=== PATIENT | female | born 1935 | race Caucasian/White ===

== ENCOUNTER 2019-06-13 11:21 | Emergency (ER) | payer MEDICARE ==
[2019-06-13] MEDS ORDERED: NA CHLORIDE 0.9% 1,000 ML ONE (13:08)
--- NOTE | 2019-06-13 13:23 | RAD REPORT ---
EXAM DESCRIPTION: RAD - Chest Single View - 06/13/2019 1:17 pm CLINICAL HISTORY: COUGH Chest pain. COMPARISON: Chest Pa And Lat (2 Views) dated 09/10/2017; Chest Single View dated 09/03/2017; Abdomen 1 View (KUB) dated 08/13/2017; Chest Pa And Lat (2 Views) dated 04/06/2017; Abdomen Pelvis W Contrast dated 09/03/2017 FINDINGS: Portable technique limits examination quality. Calcified nodule is seen in the right lung base. The lungs are mildly emphysematous but clear. The he art is moderately enlarged in size with a dual lead pacer device present. No displaced fractures. IMPRESSION: No acute intrathoracic process suspected.
[2019-06-13 13:38] LABS: Absolute Lymphocytes (CBC) 2.2 K/uL (0.7-4.9); Lymphocytes % 28.8 % (15.3-44.8)
[2019-06-13 13:46] LABS: Basophils % 0.6 % (0-1.3); Hematocrit 39.1 % (36.0-45.0); MPV 9.9 fL (7.6-11.3)
[2019-06-13 13:47] LABS: Protime INR 1.31
[2019-06-13 14:00] LABS: ALT/SGPT 25 U/L (12-78); AST/SGOT 27 U/L (15-37); Alkaline Phosphatase 84 U/L (45-117); BUN Blood Urea Nitrogen 45 mg/dL (7-18); Bicarbonate 34 mmol/L (21-32); Bilirubin Direct 0.2 mg/dL (0-0.2); Bilirubin Total 0.9 mg/dL (0.2-1.0); Glucose Level 90 mg/dL (74-106); Lipase 155 U/L (73-393); Magnesium 2.1 mg/dL (1.8-2.4); NT PRO-BNP 1117 pg/mL (<450); Protein, Total 8.3 g/dL (6.4-8.2); Sodium Level 137 mmol/L (136-145); Troponin (Emerg Dept Use Only) < 0.02 ng/mL (0.0-0.045)
[2019-06-13 14:26] LABS: Urine Blood NEGATIVE (NEG); Urine Glucose NEGATIVE (NEG); Urine Protein NEGATIVE (NEG); Urine Specific Gravity 1.015 (1.005-1.030); Urine pH 7.5 (5.0-7.0)
--- NOTE | 2019-06-13 14:50 | RAD REPORT ---
EXAM DESCRIPTION: CT - Abdomen Pelvis Wo Contrast - 06/13/2019 2:31 pm CLINICAL HISTORY: Abdominal pain. ABD PAIN COMPARISON: Abdomen Pelvis W Contrast dated 09/03/2017 TECHNIQUE: CT imaging of the abdomen and pelvis was performed without contrast. Solid organ and vasc ular assessment is limited due to lack of IV contrast. All CT scans are performed using dose optimization technique as appropriate and may include automated exposure control or mA/KV adjustment according to patient size. FINDINGS: Calcified granuloma seen in the right lower lobe.Small hiatal hernia. Pacemaker wires are present. The liver has a subtle nodular contour of the right lobe suggesting mild cirrhosis.Cholecystectomy. T he spleen, pancreas, adrenal glands and kidneys are within normal limits. Aortic atherosclerosis. No bowel obstruction, free air, free fluid or abscess. Appendectomy. Degenerative changes are present in the lower lumbar spine. IMPRESSION: No acute intra-abdominal or pelvic findings. A limited non-contrast examination was performed as detailed.
--- NOTE | 2019-06-13 15:42 | EKG ---
Test Date: 2019-06-13 Test Time: 13:05:48 [place]ellows Tester: JIMENEZ MEASUREMENT RESULTS: Intervals: Rate: 74 CT: QRSD: 152 QT: 460 QTc: 510 Wells: P: 35 CT: QRS: 6 T: 85 INTERPRETIVE STATEMENTS: Ventricular-paced rhythm Abnormal ECG Compared to ECG 09/03/2017 06:32:36 no significant change from previous ECG Electronically Signed On 06-13-19 15:41:34 CDT by Avtar Manzanares
[2019-06-13] MEDS ORDERED: POTASSIUM 25 MEQ EFFERV TAB ONE (16:00)
--- NOTE | 2019-06-13 16:20 | EDPHYS ---
Physician Documentation [facility] Name: Sonia Camp Age: 83 yrs Sex: Female : 1935 Arrival Date: 06/13/2019 Time: 11:23 Bed 18 Private MD: Pérez Hoff ED Physician Gaurang Rader HPI: 06/13 13:00 This 83 yrs old Female presents to ER via Ambulatory with complaints of [place] Rectal Pain. 13:00 The patient presents to the emergency department with pain in the rectal area, that is [place] mild. Onset: The symptoms/episode began/occurred 3 day(s) ago. Context: the patient has no known special context relating to the rectal area complaint(s). Modifying factors: The symptoms are alleviated by nothing, The symptoms are aggravated by nothing. Associate signs and symptoms: The patient has no apparent associated signs or symptoms. The patient has not experienced similar symptoms in the past. Historical: - Allergies: 11:29 PENICILLINS (Hives, rash); tw2 - Home Meds: 11:29 Caltrate 600 + D Oral [Active]; furosemide 40 mg/4 mL Oral soln [Active]; Xarelto 10 mg tw2 Oral tab [Active]; Vitamin D Oral 1000 unit [Active]; Protonix 40 mg Oral grps [Active]; pravastatin 20 mg Oral tab [Active]; metoprolol tartrate 50 mg Oral tab [Active]; levothyroxine 100 mcg tab [Active]; hydrochlorothiazide 25 mg Oral tab 1 tab once daily [Active]; allopurinol 300 mg Oral tab 1 tab once daily [Active]; - PMHx: 11:29 Atrial Fib; Hypertension; Pacemaker; Gout; tw2 - PSHx: 11:29 Tonsillectomy; Appendectomy; Tubal ligation; Cholecystectomy; ; tw2 - Immunization history:: Adult Immunizations. - Social history:: Smoking status: . - Ebola Screening: : Patient denies travel to an Ebola-affected area in the 21 days before illness onset. ROS: 13:01 Constitutional: Negative for fever, chills, and weight loss, Eyes: Negative for injury, [place] pain, redness, and discharge, ENT: Negative for injury, pain, and discharge, Neck: Negative for injury, pain, and swelling, Cardiovascular: Negative for chest pain, palpitations, and edema, Respiratory: Negative for shortness of breath, cough, wheezing, and pleuritic chest pain, Abdomen/GI: Negative for abdominal pain, nausea, vomiting, diarrhea, and constipation, Back: Negative for injury and pain, : Negative for injury, bleeding, discharge, and swelling, MS/Extremity: Negative for injury and deformity, Neuro: Negative for headache, weakness, numbness, tingling, and seizure, Psych: Negative for depression, anxiety, suicide ideation, homicidal ideation, and hallucinations, Allergy/Immunology: Negative for hives, rash, and allergies, Endocrine: Negative for neck swelling, polydipsia, polyuria, polyphagia, and marked weight changes, Hematologic/Lymphatic: Negative for swollen nodes, abnormal bleeding, and unusual bruising. 13:01 Skin: Positive for of the left gluteus loco. Exam: 13:01 Constitutional: This is a well developed, well nourished patient who is awake, alert, [place] and in no acute distress. Head/Face: Normocephalic, atraumatic. Eyes: Pupils equal round and reactive to light, extra-ocular motions intact. Lids and lashes normal. Conjunctiva and sclera are non-icteric and not injected. Cornea within normal limits. Periorbital areas with no swelling, redness, or edema. ENT: Nares patent. No nasal discharge, no septal abnormalities noted. Tympanic membranes are normal and external auditory canals are clear. Oropharynx with no redness, swelling, or masses, exudates, or evidence of obstruction, uvula midline. Mucous membranes moist. Neck: Trachea midline, no thyromegaly or masses palpated, and no cervical lymphadenopathy. Supple, full range of motion without nuchal rigidity, or vertebral point tenderness. No Meningismus. Chest/axilla: Normal chest wall appearance and motion. Nontender with no deformity. No lesions are appreciated. Cardiovascular: Regular rate and rhythm with a normal S1 and S2. No gallops, murmurs, or rubs. Normal PMI, no JVD. No pulse deficits. Respiratory: Lungs have equal breath sounds bilaterally, clear to auscultation and percussion. No rales, rhonchi or wheezes noted. No increased work of breathing, no retractions or nasal flaring. Abdomen/GI: Soft, non-tender, with normal bowel sounds. No distension or tympany. No guarding or rebound. No evidence of tenderness throughout. Back: No spinal tenderness. No costovertebral tenderness. Full range of motion. Female : Normal external genitalia. Skin: Warm, dry with normal turgor. Normal color with no rashes, no lesions, and no evidence of cellulitis. MS/ Extremity: Pulses equal, no cyanosis. Neurovascular intact. Full, normal range of motion. Neuro: Awake and alert, GCS 15, oriented to person, place, time, and situation. Cranial nerves II-XII grossly intact. Motor strength 5/5 in all extremities. Sensory grossly intact. Cerebellar exam normal. Normal gait. Psych: Awake, alert, with orientation to person, place and time. Behavior, mood, and affect are within normal limits. 13:01 Abdomen/GI: Rectal exam: rectal tone normal, Stool: normal, hemorrhoid(s), are not appreciated, mass, is not appreciated, swelling, is not appreciated, Liver: no appreciated palpable abnormalities, Hernia: not appreciated. Vital Signs: 11:29 BP 158 / 72; Pulse 87; Resp 16; Temp 98.4(TE); Pulse Ox 95% on R/A; Weight 68.04 kg tw2 (R); Height 5 ft. 6 in. (167.64 cm); Pain 0/10; 13:03 BP 148 / 71; Pulse 70; Resp 16 S; Pulse Ox 94% on R/A; ca1 14:03 BP 123 / 57; Pulse 70; Resp 16 S; Pulse Ox 100% on R/A; ca1 15:02 BP 142 / 62; Pulse 81; Resp 16 S; Pulse Ox 96% on R/A; ca1 16:15 BP 154 / 63; Pulse 84; Resp 16 S; Pulse Ox 96% on R/A; ca1 11:29 Body Mass Index 24.21 (68.04 kg, 167.64 cm) tw2 MDM: 11:56 Patient medically screened. [facility] 13:02 Data reviewed: vital signs, nurses notes, lab test result(s), EKG, radiologic studies, [facility] CT scan, plain films. 06/13 12:59 Order name: Occult Blood--Ancillary bd 06/13 13:00 Order name: Basic Metabolic Panel; Complete Time: 14:19 [facility] 06/13 13:00 Order name: CBC with Diff; Complete Time: 14:19 [facility] 06/13 13:00 Order name: LFT's; Complete Time: 14:19 [facility] 06/13 13:00 Order name: Magnesium; Complete Time: 14:19 [facility] 06/13 13:00 Order name: NT PRO-BNP; Complete Time: 14:19 [facility] 06/13 13:00 Order name: PT-INR; Complete Time: 14:19 [facility] 06/13 13:00 Order name: Troponin (emerg Dept Use Only); Complete Time: 14:19 [facility] 06/13 13:00 Order name: XRAY Chest (1 view); Complete Time: 14:19 [facility] 06/13 13:00 Order name: Lipase; Complete Time: 14:19 [facility] 06/13 13:00 Order name: Urine Culture [facility] 06/13 13:33 Order name: Urine Dipstick--Ancillary (enter results); Complete Time: 15:50 06/13 13:00 Order name: EKG; Complete Time: 13:01 [facility] 06/13 13:00 Order name: Cardiac monitoring; Complete Time: 13:28 [facility] 06/13 13:00 Order name: EKG - Nurse/Tech; Complete Time: 13:04 [facility] 06/13 13:00 Order name: IV Saline Lock; Complete Time: 13:28 [facility] 06/13 13:00 Order name: Labs collected and sent; Complete Time: 13:28 [facility] 06/13 13:00 Order name: O2 Per Protocol; Complete Time: 13:04 [facility] 06/13 13:00 Order name: O2 Sat Monitoring; Complete Time: 13:04 [facility] 06/13 13:00 Order name: Urine Dipstick-Ancillary (obtain specimen); Complete Time: 13:27 [facility] 06/13 14:29 Order name: Abdomen ; Complete Time: 15:50 EDMS 06/13 15:51 Order name: PO challenge: juice; Complete Time: 16:15 [place] Administered Medications: 13:05 Drug: NS 0.9% 1000 ml Route: IV; Rate: 125 ml/hr; Site: right antecubital; ca1 16:29 Follow up: Response: No adverse reaction; IV Status: Order to discontinue infusion ca1 16:15 Drug: Potassium Effervescent Tablet 25 mEq Route: PO; ca1 16:29 Follow up: Response: No adverse reaction ca1 Disposition: 06/13/19 16:19 Discharged to Home. Impression: Abdominal tenderness, Unspecified kidney failure, Hypokalemia. - Condition is Stable. - Discharge Instructions: Abdominal Pain, Adult, Potassium Content of Foods, Abdominal Pain, Adult, [id number], Chronic Kidney Disease, Adult, [id number], Hypokalemia. - Prescriptions for Tylenol- Codeine #3 300-30 mg Oral Tablet - take 2 tablets by ORAL route every 6 hours As needed; 20 tablet. - Medication Reconciliation Form, Thank You Letter, Antibiotic Education, Prescription Opioid Use form. - Follow up: Pérez Hoff MD; When: Tomorrow; Reason: Recheck today's complaints, Continuance of care, Re-evaluation by your physician. - Problem is new. - Symptoms have improved. Signatures: Dispatcher [employer] EDVA Gaurang Rader MD MD cha Wise, Tara, RN RN tw2 Jazzmine Betancur RN RN ca1 Corrections: (The following items were deleted from the chart) 14:29 13:01 Abdomen Pelvis W Con+CT.RAD.BRZ ordered. [facility] 14:29 14:29 CT-ABD ordered. [facility] 16:35 16:19 06/13/2019 16:19 Discharged to Home. Impression: Abdominal tenderness; ca1 Unspecified kidney failure; Hypokalemia. Condition is Stable. Forms are Medication Reconciliation Form, Thank You Letter, Antibiotic Education, Prescription Opioid Use. Follow up: Pérez Hoff; When: Tomorrow; Reason: Recheck today's complaints, Continuance of care, Re-evaluation by your physician. Problem is new. Symptoms have improved. [place]
--- NOTE | 2019-06-13 16:20 | ER ---
Nurse's Notes [facility] Name: Sonia Camp Age: 83 yrs Sex: Female : 1935 Arrival Date: 06/13/2019 Time: 11:23 Bed 18 Private MD: Pérez Hoff Diagnosis: Abdominal tenderness;Unspecified kidney failure;Hypokalemia Presentation: 06/13 11:25 Presenting complaint: Patient states: for about a week i have had a warm sensation on tw2 the cheek of my butt on the left side and pain on my right side and it feels hot on the inside, i take xarelto and i always watch for bleeding it feels like a surge of blood but i dont see anything. Transition of care: patient was not received from another setting of care. Onset of symptoms was June 13, 2019. Risk Assessment: Do you want to hurt yourself or someone else? Patient reports no desire to harm self or others. Initial Sepsis Screen: Does the patient meet any 2 criteria? No. Patient's initial sepsis screen is negative. Does the patient have a suspected source of infection? No. Patient's initial sepsis screen is negative. Care prior to arrival: None. 11:25 Method Of Arrival: Ambulatory tw2 11:25 Acuity: DEEPA 3 tw2 Triage Assessment: 11:27 General: Appears in no apparent distress. well groomed, Behavior is calm, cooperative, tw2 appropriate for age. Pain: Complains of pain in Right side of ribs and left buttocks. Historical: - Allergies: 11: PENICILLINS (Hives, rash); tw2 - Home Meds: 11: Caltrate 600 + D Oral [Active]; furosemide 40 mg/4 mL Oral soln [Active]; Xarelto 10 mg tw2 Oral tab [Active]; Vitamin D Oral 1000 unit [Active]; Protonix 40 mg Oral grps [Active]; pravastatin 20 mg Oral tab [Active]; metoprolol tartrate 50 mg Oral tab [Active]; levothyroxine 100 mcg tab [Active]; hydrochlorothiazide 25 mg Oral tab 1 tab once daily [Active]; allopurinol 300 mg Oral tab 1 tab once daily [Active]; - PMHx: 11: Atrial Fib; Hypertension; Pacemaker; Gout; tw2 - PSHx: 11:29 Tonsillectomy; Appendectomy; Tubal ligation; Cholecystectomy; ; tw2 - Immunization history:: Adult Immunizations. - Social history:: Smoking status: . - Ebola Screening: : Patient denies travel to an Ebola-affected area in the 21 days before illness onset. Screenin:00 Abuse screen: Denies threats or abuse. Denies injuries from another. Nutritional ca1 screening: No deficits noted. Tuberculosis screening: No symptoms or risk factors identified. Fall Risk IV access (20 points). Ambulatory Aid- Crutches/Cane/Walker (15 pts). Total Jaffe Fall Scale indicates Low Risk Score (25-44 pts). Fall prevention measures have been instituted. Side Rails Up X 2. Assessment: 12:00 General: Appears in no apparent distress. comfortable, Behavior is calm, cooperative, ca1 appropriate for age. Pain: Complains of pain in buttocks Pain currently is 3 out of 10 on a pain scale. Quality of pain is described as burning, Pain began a week ago Is intermittent. Neuro: Level of Consciousness is awake, alert, obeys commands, Oriented to person, place, time, situation, Appropriate for age. Cardiovascular: Heart tones S1 S2 present Capillary refill < 3 seconds Patient's skin is warm and dry. Respiratory: Airway is patent Respiratory effort is even, unlabored, Respiratory pattern is regular, symmetrical, Breath sounds are clear bilaterally. GI: Abdomen is flat, non-distended, Bowel sounds present X 4 quads. Abd is soft and non tender X 4 quads. : No deficits noted. No signs and/or symptoms were reported regarding the genitourinary system. EENT: No deficits noted. No signs and/or symptoms were reported regarding the EENT system. Derm: Skin is intact, is healthy with good turgor, Skin is pink, warm \T\ dry. Musculoskeletal: Circulation, motion, and sensation intact. Capillary refill < 3 seconds, Range of motion: intact in all extremities. 13:03 Reassessment: Patient appears in no apparent distress at this time. Patient and/or ca1 family updated on plan of care and expected duration. Pain level reassessed. Patient is alert, oriented x 3, equal unlabored respirations, skin warm/dry/pink. 14:03 Reassessment: Patient appears in no apparent distress at this time. Patient is alert, ca1 oriented x 3, equal unlabored respirations, skin warm/dry/pink. 15:00 Reassessment: Patient appears in no apparent distress at this time. Patient and/or ca1 family updated on plan of care and expected duration. Pain level reassessed. Patient is alert, oriented x 3, equal unlabored respirations, skin warm/dry/pink. 16:15 Reassessment: Patient appears in no apparent distress at this time. Patient is alert, ca1 oriented x 3, equal unlabored respirations, skin warm/dry/pink. Benson juice and K effervescent tolerated well. Vital Signs: 11:29 BP 158 / 72; Pulse 87; Resp 16; Temp 98.4(TE); Pulse Ox 95% on R/A; Weight 68.04 kg tw2 (R); Height 5 ft. 6 in. (167.64 cm); Pain 0/10; 13:03 BP 148 / 71; Pulse 70; Resp 16 S; Pulse Ox 94% on R/A; ca1 14:03 BP 123 / 57; Pulse 70; Resp 16 S; Pulse Ox 100% on R/A; ca1 15:02 BP 142 / 62; Pulse 81; Resp 16 S; Pulse Ox 96% on R/A; ca1 16:15 BP 154 / 63; Pulse 84; Resp 16 S; Pulse Ox 96% on R/A; ca1 11:29 Body Mass Index 24.21 (68.04 kg, 167.64 cm) tw2 ED Course: 11:23 Patient arrived in ED. mr 11:24 Pérez Hoff MD is Private Physician. mr 11:27 Triage completed. tw2 11:27 Arm band placed on. tw2 11:50 Jazzmine Betancur, RN is Primary Nurse. ca1 11:56 Gaurang Rader MD is Attending Physician. [place] 12:00 Patient has correct armband on for positive identification. Placed in gown. Bed in low ca1 position. Call light in reach. Side rails up X 1. Pulse ox on. NIBP on. Warm blanket given. 12:00 No provider procedures requiring assistance completed. ca1 13:05 Initial lab(s) drawn, by me, sent to lab. Inserted saline lock: 22 gauge in right ca1 antecubital area, using aseptic technique. Blood collected. 13:11 EKG done, by nurse tech. reviewed by Gaurang Rader MD. sm3 13:17 XRAY Chest (1 view) In Process Unspecified. EDMS 14:31 Abdomen In Process Unspecified. EDMS 16:17 Pérez Hoff MD is Referral Physician. [facility] 16:30 IV discontinued, intact, bleeding controlled, No redness/swelling at site. Pressure ca1 dressing applied. Administered Medications: 13:05 Drug: NS 0.9% 1000 ml Route: IV; Rate: 125 ml/hr; Site: right antecubital; ca1 16:29 Follow up: Response: No adverse reaction; IV Status: Order to discontinue infusion ca1 16:15 Drug: Potassium Effervescent Tablet 25 mEq Route: PO; ca1 16:29 Follow up: Response: No adverse reaction ca1 Outcome: 16:19 Discharge ordered by . [facility] 16:30 Discharged to home ambulatory. ca1 16:30 Condition: stable 16:30 Discharge instructions given to patient, Instructed on discharge instructions, follow up and referral plans. no driving heavy equipment, medication usage, Demonstrated understanding of instructions, follow-up care, medications, Prescriptions given X 1. 16:35 Patient left the ED. ca1 Signatures: Dispatcher [employer] EDMS Gaurang Rader MD MD cha Rivera, Mary mr Missy Valles, RN RN tw2 Neisha Alejandro [facility] Jazzmine Betancur, RN RN ca1
[2019-06-13 17:23] VITALS: TEMP 98.4
[2019-06-13 17:26] VITALS: O2SAT 96
[2019-06-13 17:27] VITALS: BP 154/63
== END 2019-06-13 16:35 | disposition home or self-care (01) ==
LOC: ER 11:21
DX: N19 Unspecified kidney failure (principal); E87.6 Hypokalemia; I10 Essential (primary) hypertension; I48.91 Unspecified atrial fibrillation; Z95.0 Presence of cardiac pacemaker; Z79.01 Long term (current) use of anticoagulants; Z88.0 Allergy status to penicillin
CPT/HCPCS: 96361; 93005; 87088; 85025; 87086; 80048; 36415; 83735; 85610; 80076; 81003; 84484; 83690; 83880; 74176; 71045; 96360; 99284; J7030; 82272

== ENCOUNTER 2020-01-23 19:02 | Emergency (ER) | payer MEDICARE, OTHER ==
--- OUTSIDE RECORDS SUMMARY | 2020-01-23 19:47 | XMS REPORT | Continuity of Care Document ---
:[address] [facility] t Address [address] [place] [address] Care Team Providers Name Role Phone Unavailable Unavailable Unavailable Payers Payer Name Policy Type Policy Number Effective Date Expiration Date S ource Problems This patient has no known problems. Allergies, Adverse Reactions, Alerts Allergy Allergy Status Severity Reaction(s) Onset Inactive Treating Comm ents Source Name Type Date Date Clinician Penicill DA Active SV [facility] ins -13 00:00: 00 Medications This patient has no known medications. Procedures This patient has no known procedures. Results Test Description Test Time Test Comments Results Result Comments Source BASIC METABOLIC PANEL 2019-09-02 07:02:00 Test Item Value Reference Range Interpretation Comme nts SODIUM (test code = NA) 138 mmol/L 135-145 N POTASSIUM (test code = K) 3.7 mmol/L 3.5-5.1 N CHLORIDE (test code = CL) 99 mmol/L 98-107 N CARBON DIOXIDE (test code = 36 mmol/L 21-32 H CO2) ANION GAP (test code = GAP) 6.7 2.0-16.0 N GLUCOSE (test code = GLU) 97 mg/dL 65-99 N BLOOD UREA NITROGEN (test code 17 mg/dL 4-23 N = BUN) GLOMERULAR FILTRATION RATE 42 ml/min 60-115 L T he estimated glomerular (test code = GFR) filtration rate is computed usingpatient ra ce, age (>18), sex, and serum creatinine. If anyof the neede d data elements are missing the Laboratory cannot compute an estimation of the glomerular filtration rate. CREATININE (test code = CREAT) 1.3 mg/dL 0.6-1.5 N BUN/CREATININE RATIO (test 13.1 12.0-20.0 N code = BUN/CREA) CALCIUM (test code = CA) 9.4 mg/dL 8.5-10.1 N [id number] 07:02:00 Test Item Value Reference Range Interpretation Comments MAGNESIUM (test code = MAG) 2.1 mg/dL 1.8-2.4 N PROTHROMBIN [id number] 06:55:00 Test Item Value Reference Range Interpretation Comments PROTHROMBIN TIME 12.2 SECONDS 9.4-12.5 N PATIENT (test code = PTP) INTERNATIONAL 1.1 RATIO 0.8-1.1 N THE INR IS USE FUL ONLY NORMAL RATIO (test FOR MONIT ORING code = INR) ANTICOAGULANT THERAPY.IT MAY BE UNRELIABLE IN T HE INITIAL PHASE O F ANTICOAGULATION AND IN UNSTABLE PATIEN TS. 2.0-3.0 is the recommended INR for the following:Preve ntion of venous thrombol ism in high-risk patients;treatm ent of venous thrombos is and pulmonary embol ism aftera course o f heparin; preven tion of systemic emboli sm in avariety of con dition, including atria l fibrillation andprosthetic t issue heart valves.2. 5-3.5 is the recommended INR for the following:Prost hetic mechanical hear t values and/or recurren t systemicemboliz ation. THROMBOPLASTIN TIME [id number] 06:55:00 Test Item Value Reference Range Interpretation Comments THROMBOPLASTIN TIME PARTIAL 32.3 SECONDS 25.1-36.5 N (test code = PTT) CBC W/AUTO [id number] 06:40:00 Test Item Value Reference Range Interpretation Comments WHITE BLOOD CELL (test code = 11.0 10 3/uL 4.5-11.0 N WBC) RED BLOOD CELL (test code = 3.77 10 6/uL 3.50-5.50 N RBC) HEMOGLOBIN (test code = HGB) 11.6 g/dL 12.0-16.0 L HEMATOCRIT (test code = HCT) 36.2 % 37.0-55.0 L MEAN CELL VOLUME (test code = 96 fL 81-102 N MCV) MEAN CELL HGB (test code = 30.8 pg 26.0-34.0 N MCH) MEAN CELL HGB CONCENTRATION 32.0 % 31.0-37.0 N (test code = MCHC) RED CELL DISTRIBUTION WIDTH 16.1 % 11.5-14.5 H (test code = RDW) PLATELET COUNT (test code = 336 10 3/uL 150-400 N PLT) MEAN PLATELET VOLUME (test 10.9 fl 9.0-12.6 N code = MPV) NEUTROPHIL % (test code = NT%) 63.6 % 33.0-76.0 N IMMATURE GRANULOCYTE % (test 2.1 % 0.0-1.0 H code = IG%) LYMPHOCYTE % (test code = LY%) 19.6 % 14.0-56.4 N MONOCYTE % (test code = MO%) 14.1 % 0.0-12.9 H EOSINOPHIL % (test code = EO%) 0.1 % 0.0-7.0 N BASOPHIL % (test code = BA%) 0.5 % 0-2.0 N NUCLEATED RBC % (test code = 0.2 % 0-0.2 N NRBC%) NEUTROPHIL # (test code = NT#) 6.96 10 3/uL 1.5-7.0 N IMMATURE GRANULOCYTE # (test 0.230 x10 3/uL 0.000-0.100 H code = IG#) LYMPHOCYTE # (test code = LY#) 2.15 10 3/uL 1.50-4.00 N MONOCYTE # (test code = MO#) 1.54 10 3/uL 0.20-0.80 H EOSINOPHIL # (test code = EO#) 0.01 10 3/uL 0.0-0.5 N BASOPHIL # (test code = BA#) 0.06 10 3/uL 0.0-0.1 N
[2020-01-23] MEDS ORDERED: LIDOCAINE 1% 20 ML MDV ONE (21:22)
[2020-01-23] MEDS ORDERED: LIDOCAINE 1% W/EPI 1:100,000 MDV 20 ML VIAL ONE (21:31)
--- NOTE | 2020-01-23 21:49 | EDPHYS ---
Physician Documentation [facility] Name: Sonia Camp Age: 84 yrs Sex: Female : 1935 Arrival Date: 01/23/2020 Time: 19:03 Bed 26 Private MD: Pérez Hoff ED Physician Jesus Muhammad HPI: 01/22 21:00 This 84 yrs old Female presents to ER via Ambulatory with complaints of cp Laceration To Arm. 21:00 The patient has a laceration occurred at home. The laceration(s) is(are) located on the cp dorsal aspect of left forearm. Onset: The symptoms/episode began/occurred just prior to arrival. 21:00 Patient reports laceration caused by sharp edge of screen door. cp Historical: - Allergies: 19:22 PENICILLINS (Hives, rash); ca1 - Home Meds: 19:22 Xarelto 10 mg Oral tab [Active]; ca1 - PMHx: 19:22 Atrial Fib; Gout; Hypertension; Pacemaker; ca1 - PSHx: 19:22 Tonsillectomy; Appendectomy; Tubal ligation; Cholecystectomy; ; ca1 - Immunization history:: Adult Immunizations up to date, Last tetanus immunization: unknown. - Social history:: Smoking status: Patient denies any tobacco usage or history of. ROS: 21:05 Skin: Positive for laceration(s), of the dorsal aspect of left forearm. cp 21:05 Neuro: Negative for numbness, tingling, weakness. cp 21:05 All other systems are negative. Exam: 21:15 Constitutional: The patient appears in no acute distress, alert, awake, well developed, cp well nourished. 21:15 Skin: injury, laceration(s), the wound is approximately 4 cm(s), of the dorsal aspect cp of left forearm, that can be described as no foreign body, irregular, with moderate bleeding. Vital Signs: 19:19 BP 145 / 66; Pulse 70; Resp 15 S; Temp 97.5(TE); Pulse Ox 95% on R/A; Weight 68.04 kg ca1 (R); Height 5 ft. 6 in. (167.64 cm) (R); Pain 2/10; 21:00 BP 150 / 60; Pulse 72; Resp 18; Temp 98.1; Pulse Ox 99% ; Pain 7/10; jv1 22:00 BP 149 / 61; Pulse 72; Resp 18; Temp 98.2; Pulse Ox 98% ; jv1 22:40 BP 147 / 68; Pulse 72; Resp 18; Temp 98; Pulse Ox 99% ; Pain 0/10; jv1 19:19 Body Mass Index 24.21 (68.04 kg, 167.64 cm) ca1 Laceration: 21:45 Wound Repair of 4cm ( 1.6in ) subcutaneous laceration to dorsal aspect of left forearm. cp Irregularly shaped.. Distal neuro/vascular/tendon intact. Anesthesia: Wound infiltrated with 6 mls of 1% lidocaine w/ Epi. Wound prep: Wound irrigation by me. Skin closed with 6 4-0 Prolene using simple sutures and sterile technique. Dressed with Bacitracin, 4x4's, pressure dressing. Patient tolerated well. MDM: 20:55 Patient medically screened. cp 21:15 Differential diagnosis: superficial laceration, tendon injury, vascular injury. cp 21:48 Data reviewed: vital signs, nurses notes, and as a result, I will discharge patient. cp 21:48 Counseling: I had a detailed discussion with the patient and/or guardian regarding: the cp historical points, exam findings, and any diagnostic results supporting the discharge/admit diagnosis, the need for outpatient follow up, a family practitioner, to return to the emergency department if symptoms worsen or persist or if there are any questions or concerns that arise at home. Response to treatment: the patient's symptoms have markedly improved after treatment, and as a result, I will discharge patient. 01/22 20:56 Order name: Wound Care; Complete Time: 21:45 cp 01/22 20:56 Order name: Dressing - Wound; Complete Time: 21:45 cp 01/22 20:56 Order name: Gloves, Sterile; Complete Time: 21:45 cp 01/22 20:56 Order name: Setup Suture Tray; Complete Time: 21:45 cp 01/22 21:45 Order name: Wound dressing: pressure dressing; Complete Time: 22:14 cp Administered Medications: 21:45 Drug: Lidocaine-Epinephrine -1%: (1:100,000) 20 ml {Note: MD ADMINISTERED.} Volume: 20 jv1 ml; Route: Infiltration; 22:15 Follow up: Response: No adverse reaction; Pain is decreased jv1 22:35 Drug: Tetanus-Diphtheria Toxoid Adult 0.5 ml {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 Exp: jv1 09/30/2021. Lot #: [id number]. } Route: IM; Site: left deltoid; 22:38 Follow up: Response: No adverse reaction jv1 01/23 00:16 CANCELLED ( CHANGED ORDER): Lidocaine (1 %) 20 ml 20 ml Infiltration Per package jv1 directions; to bedside Disposition: 01/22 22:00 Chart complete. 01/23 05:44 Co-signature as Attending Physician, Jesus Muhammad MD. 7 Disposition: 01/23/20 21:49 Discharged to Home. Impression: Laceration without foreign body of left forearm. - Condition is Stable. - Discharge Instructions: Sutured Wound Care. - Prescriptions for Keflex 500 mg Oral Capsule - take 1 capsule by ORAL route every 8 hours for 10 days; 30 capsule. - Medication Reconciliation Form, Thank You Letter, Antibiotic Education, Prescription Opioid Use form. - Follow up: Private Physician; When: 1 - 2 days; Reason: Wound Recheck. - Problem is new. - Symptoms have improved. Signatures: Gaurang Brown PA PA cp Vicente, Joyce, RN RN jv1 Sade Avalos RN RN 4 Jazzmine Betancur RN RN [facility] Jesus Muhammad MD MD 7 Corrections: (The following items were deleted from the chart) 01/22 22:58 21:49 01/23/2020 21:49 Discharged to Home. Impression: Laceration without foreign body jv1 of left forearm. Condition is Stable. Forms are Medication Reconciliation Form, Thank You Letter, Antibiotic Education, Prescription Opioid Use. Follow up: Private Physician; When: 1 - 2 days; Reason: Wound Recheck. Problem is new. Symptoms have improved. cp 01/23 00:16 01/22 21:11 Lidocaine (1 %) 20 ml 20 ml Infiltration Per package directions; to bedside jv1 ordered. jv1 01/23 00:16 01/22 21:45 Lidocaine (1 %) 20 ml 20 ml Infiltration Per package directions; to bedside jv1 given. jv1 01/23 00:16 00:15 Lidocaine (1 %) 20 ml 20 ml Infiltration Per package directions; to bedside jv1 ordered. jv1 00:32 01/22 22:58 01/23/2020 21:49 Discharged to Home. Impression: Laceration without foreign ls4 body of left forearm. Condition is Stable. Discharge Instructions: Sutured Wound Care. Prescriptions for Keflex 500 mg Oral Capsule - take 1 capsule by ORAL route every 8 hours for 10 days; 30 capsule. and Forms are Medication Reconciliation Form, Thank You Letter, Antibiotic Education, Prescription Opioid Use. Follow up: Private Physician; When: 1 - 2 days; Reason: Wound Recheck. Problem is new. Symptoms have improved. jv1
--- NOTE | 2020-01-23 21:49 | ER ---
Nurse's Notes [facility] Name: Sonia Camp Age: 84 yrs Sex: Female : 1935 Arrival Date: 01/23/2020 Time: 19:03 Bed 26 Private MD: Pérez Hoff Diagnosis: Laceration without foreign body of left forearm Presentation: 01/22 19:19 Chief complaint: Patient states: Lac on L forearm. Coronavirus screen: Proceed with ca1 normal triage. Patient denies a cough. Patient denies shortness of breath or difficulty breathing. Patient denies measured and/or subjective temperature greater than 100.4F prior to today's visit. Patient denies travel on a cruise ship or to a country the [facility] currently lists as an affected area. Patient denies contact with known and/or suspected case of COVID-19. Ebola Screen: Patient negative for fever greater than or equal to 101.5 degrees Fahrenheit, and additional compatible Ebola Virus Disease symptoms Patient denies exposure to infectious person. Patient denies travel to an Ebola-affected area in the 21 days before illness onset. No symptoms or risks identified at this time. Complicating Factors: There are no complicating factors for this patient. Initial Sepsis Screen: Does the patient meet any 2 criteria? No. Patient's initial sepsis screen is negative. Does the patient have a suspected source of infection? No. Patient's initial sepsis screen is negative. Risk Assessment: Do you want to hurt yourself or someone else? Patient reports no desire to harm self or others. Onset of symptoms was January 23, 2020. 19:19 Method Of Arrival: Ambulatory ca1 19:19 Acuity: DEEPA 4 ca1 Triage Assessment: 20:40 General: Appears in no apparent distress. uncomfortable, Behavior is calm, cooperative. ls4 Pain: Complains of pain in dorsal aspect of left forearm Pain currently is 3 out of 10 on a pain scale. Historical: - Allergies: 19:22 PENICILLINS (Hives, rash); ca1 - Home Meds: 19:22 Xarelto 10 mg Oral tab [Active]; ca1 - PMHx: 19:22 Atrial Fib; Gout; Hypertension; Pacemaker; ca1 - PSHx: 19:22 Tonsillectomy; Appendectomy; Tubal ligation; Cholecystectomy; ; ca1 - Immunization history:: Adult Immunizations up to date, Last tetanus immunization: unknown. - Social history:: Smoking status: Patient denies any tobacco usage or history of. Screenin:38 Abuse screen: Denies threats or abuse. Denies injuries from another. Nutritional ls4 screening: No deficits noted. Tuberculosis screening: No symptoms or risk factors identified. Fall Risk None identified. Assessment: 20:43 Musculoskeletal: No deficits noted. No signs and/or symptoms reported regarding the ls4 musculoskeletal system. 20:45 General: Appears uncomfortable, well groomed, Behavior is calm, cooperative, jv1 appropriate for age. Pain: Complains of pain in left arm and dorsal aspect of left forearm Pain does not radiate. Pain currently is 7 out of 10 on a pain scale. Quality of pain is described as aching, Pain began 2 hours ago. Neuro: Level of Consciousness is awake, alert, obeys commands, Oriented to person, place, time, situation, Polysomnographer are equal bilaterally Moves all extremities. Cardiovascular: Denies chest pain, Heart tones S1 S2 Capillary refill < 3 seconds. Respiratory: Airway is patent Respiratory effort is even, unlabored, Respiratory pattern is regular, symmetrical, Breath sounds are clear bilaterally. GI: No signs and/or symptoms were reported involving the gastrointestinal system. Abdomen is round non-distended, Bowel sounds present X 4 quads. : No signs and/or symptoms were reported regarding the genitourinary system. EENT: No signs and/or symptoms were reported regarding the EENT system. Derm: Reports laceration on the left forearm. Injury Description: Laceration is jagged, small bleeding noted, swelling noted. 20:55 Reassessment: provider in the room with pt. jv1 21:30 Reassessment: provider in the room with pt doing sutures. jv1 21:45 Reassessment: Patient appears in no apparent distress at this time. No changes from jv1 previously documented assessment. Patient and/or family updated on plan of care and expected duration. Pain level reassessed. Patient is alert, oriented x 3, equal unlabored respirations, skin warm/dry/pink. 21:55 Reassessment: Patient and/or family updated on plan of care and expected duration. Pain jv1 level reassessed. Patient is alert, oriented x 3, equal unlabored respirations, skin warm/dry/pink. pressure dressing done as ordered Patient states symptoms have improved. Vital Signs: 19:19 BP 145 / 66; Pulse 70; Resp 15 S; Temp 97.5(TE); Pulse Ox 95% on R/A; Weight 68.04 kg ca1 (R); Height 5 ft. 6 in. (167.64 cm) (R); Pain 2/10; 21:00 BP 150 / 60; Pulse 72; Resp 18; Temp 98.1; Pulse Ox 99% ; Pain 7/10; jv1 22:00 BP 149 / 61; Pulse 72; Resp 18; Temp 98.2; Pulse Ox 98% ; jv1 22:40 BP 147 / 68; Pulse 72; Resp 18; Temp 98; Pulse Ox 99% ; Pain 0/10; jv1 19:19 Body Mass Index 24.21 (68.04 kg, 167.64 cm) ca1 ED Course: 19:03 Patient arrived in ED. as 19:04 Pérez Hoff MD is Private Physician. as 19:21 Triage completed. ca1 19:22 Arm band placed on right wrist. ca1 20:23 Sade Avalos, RN is Primary Nurse. ls4 20:38 Patient has correct armband on for positive identification. Bed in low position. Call ls4 light in reach. Side rails up X 1. 20:41 Assist provider with laceration repair Set up tray. Patient did not have IV access ls4 during this emergency room visit. 20:49 Gaurang Brown PA is PHCP. cp 20:49 Jesus Muhammad MD is Attending Physician. cp 01/23 00:14 Primary Nurse role handed off by Sade Avalos, RN jv1 Administered Medications: 01/22 21:45 Drug: Lidocaine-Epinephrine -1%: (1:100,000) 20 ml {Note: MD ADMINISTERED.} Volume: 20 jv1 ml; Route: Infiltration; 22:15 Follow up: Response: No adverse reaction; Pain is decreased jv1 22:35 Drug: Tetanus-Diphtheria Toxoid Adult 0.5 ml {Assistant Track And Field Coach: [employer]. Exp: jv1 09/30/2021. Lot #: [id number]. } Route: IM; Site: left deltoid; 22:38 Follow up: Response: No adverse reaction jv1 01/23 00:16 CANCELLED ( CHANGED ORDER): Lidocaine (1 %) 20 ml 20 ml Infiltration Per package jv1 directions; to bedside Outcome: 01/22 21:49 Discharge ordered by . cp 22:56 Discharged to home ambulatory. jv1 22:56 Condition: stable 22:56 Discharge instructions given to patient, Instructed on discharge instructions, follow up and referral plans. medication usage, wound care, Demonstrated understanding of instructions, follow-up care, medications, wound care, Prescriptions given X 2. 22:58 Patient left the ED. jv1 22:58 Patient left the ED. ls4 Signatures: Fina Lara Corey, DANNY PA cp Sophia Tirado, RN RN jv1 Sade Avalos RN RN ls4 Aimee Al ar5 Jazzmine Betancur RN RN ca1 Corrections: (The following items were deleted from the chart) 20:33 20:32 Irrigation ar5 ar5 20:58 20:53 General: Appears jv1 jv1 01/23 00:15 06/08 21:45 Lidocaine (1 %) 20 ml 20 ml Infiltration 20 ml jv1 jv1 01/23 00:33 00:32 Patient left the ED. ls4 ls4
[2020-01-23] MEDS ORDERED: TETANUS & DIPHTHERIA TOX,ADULT 0.5 ML VIAL ONE (22:33)
[2020-01-23 23:45] VITALS: BP 147/68; TEMP 98; O2SAT 99
== END 2020-01-24 00:32 | disposition home or self-care (01) ==
LOC: ER 19:02
PROC: 0JQH0ZZ Repair Left Lower Arm Subcutaneous Tissue and Fascia, Open Approach (ICD-10-PCS; principal; 2020-01-24)
DX: S51.812A Laceration without foreign body of left forearm, initial encounter (principal); W26.8XXA Contact with other sharp object(s), not elsewhere classified, initial encounter; Y93.9 Activity, unspecified; Y92.009 Unspecified place in unspecified non-institutional (private) residence as the place of occurrence of the external cause; Z23 Encounter for immunization; Z79.01 Long term (current) use of anticoagulants; Z88.0 Allergy status to penicillin; Z95.0 Presence of cardiac pacemaker; I10 Essential (primary) hypertension
CPT/HCPCS: 36415; 80048; 80061; 80076; 84443; 84550; 85025; 90471; 90714; 99283

== ENCOUNTER 2020-01-24 21:29 | Emergency (ER) | payer MEDICARE, OTHER ==
--- OUTSIDE RECORDS SUMMARY | 2020-01-24 21:45 | XMS REPORT | Continuity of Care Document ---
:1935 Author Organization [facility] t Address [address] [place] [address] Care Team Providers Name Role Phone Unavailable [...] code = CA) 9.4 mg/dL 8.5-10.1 N [id number] 07:02:00 Test Item Value Reference Range Interpretation Comments MAGNESIUM (test code = MAG) 2.1 mg/dL 1.8-2.4 N PROTHROMBIN [id number] 06:55:00 Test Item Value Reference Range Interpretation [...] and/or recurren t systemicemboliz ation. THROMBOPLASTIN TIME [id number] 06:55:00 Test Item Value Reference Range Interpretation Comments THROMBOPLASTIN TIME PARTIAL 32.3 SECONDS 25.1-36.5 N (test code = PTT) CBC W/AUTO [id number] 06:40:00 Test Item Value Reference Range Interpretation [...]
[2020-01-24] MEDS ORDERED: HYDROCODONE/APAP 5/325 MG TAB ONE (22:24)
[2020-01-24 22:45] LABS: Absolute Lymphocytes (CBC) 2.1 K/uL (0.7-4.9); Basophils % 0.8 % (0-1.3); Hematocrit 36.9 % (36.0-45.0); Lymphocytes % 26.5 % (15.3-44.8); MPV 10.6 fL (7.6-11.3); RBC Red Blood Cell Count 3.95 M/uL (3.86-4.86)
[2020-01-24 22:49] LABS: Protime INR 1.16
[2020-01-24 22:58] LABS: Potassium 3.6 mmol/L (3.5-5.1)
--- NOTE | 2020-01-24 23:20 | ER ---
Nurse's Notes [facility] Name: Sonia Camp Age: 84 yrs Sex: Female : 1935 Arrival Date: 01/24/2020 Time: 21:31 Bed 16 Private MD: Pérez Hoff Diagnosis: Hematoma-Left Forearm;Wound Check-Laceration Presentation: 01/23 21:41 Chief complaint: Patient states: my left arm is swollen and hurt so bad now. yesterday rr5 my left arm got hit by a door handle went here did suture. Coronavirus screen: Proceed with normal triage. Ebola Screen: Patient negative for fever greater than or equal to 101.5 degrees Fahrenheit, and additional compatible Ebola Virus Disease symptoms Patient denies exposure to infectious person. Patient denies travel to an Ebola-affected area in the 21 days before illness onset. Initial Sepsis Screen: Does the patient meet any 2 criteria? No. Patient's initial sepsis screen is negative. Does the patient have a suspected source of infection? No. Patient's initial sepsis screen is negative. Risk Assessment: Do you want to hurt yourself or someone else? Patient reports no desire to harm self or others. Onset of symptoms was January 24, 2020. 21:41 Method Of Arrival: Wheelchair rr5 21:41 Acuity: DEEPA 4 rr5 Historical: - Allergies: 21:47 PENICILLINS (Hives, rash); rr5 - PMHx: 21:47 Atrial Fib; Gout; Pacemaker; Hypertension; rr5 - PSHx: 21:47 Tonsillectomy; Appendectomy; Tubal ligation; Cholecystectomy; foot surgery; rr5 - Immunization history:: Adult Immunizations up to date. - Social history:: Smoking status: unknown Patient/guardian denies using alcohol, street drugs, tobacco products. Screenin:30 Abuse screen: Denies threats or abuse. Denies injuries from another. Nutritional rr5 screening: No deficits noted. Tuberculosis screening: No symptoms or risk factors identified. Fall Risk IV access (20 points). Total Jaffe Fall Scale indicates No Risk (0-24 pts). Assessment: 22:00 General: Appears in no apparent distress. uncomfortable, Behavior is calm, cooperative, rr5 appropriate for age. 22:00 Pain: Complains of pain in dorsal aspect of left forearm Pain radiates to left arm Pain rr5 currently is 5 out of 10 on a pain scale. Quality of pain is described as aching, tender, Pain began suddenly, Is intermittent. Neuro: Level of Consciousness is awake, alert, obeys commands, Oriented to person, place, time, situation. Cardiovascular: Capillary refill < 3 seconds Patient's skin is warm and dry. Respiratory: Airway is patent Respiratory effort is even, unlabored, Respiratory pattern is regular, symmetrical. GI: No signs and/or symptoms were reported involving the gastrointestinal system. : No signs and/or symptoms were reported regarding the genitourinary system. EENT: No signs and/or symptoms were reported regarding the EENT system. Derm: Skin is fragile, is thin, Skin temperature is warm Wound noted dorsal aspect of left forearm Wound is lacerated wound post suture. swelling, bruise and mild bleeding noted Bruising that is dark purple, on dorsal aspect of left forearm. Musculoskeletal: Capillary refill < 3 seconds. 23:10 Reassessment: Patient appears in no apparent distress at this time. Patient is alert, rr5 oriented x 3, equal unlabored respirations, skin warm/dry/pink. reassess by ED provider for discharge Patient states feeling better. Patient states symptoms have improved. 23:30 Reassessment: Patient appears in no apparent distress at this time. Patient is alert, rr5 oriented x 3, equal unlabored respirations, skin warm/dry/pink. discharge instruction given and explained without complaints made Patient states feeling better. Patient states symptoms have improved. Vital Signs: 21:41 BP 108 / 48; Pulse 70; Resp 16; Temp 98.6; Pulse Ox 97% ; Weight 68.04 kg; Height 5 ft. rr5 6 in. (167.64 cm); Pain 5/10; 23:00 BP 110 / 62; Pulse 75; Resp 19; Pulse Ox 98% on R/A; rr5 23:30 BP 121 / 70; Pulse 72; Resp 17; Pulse Ox 98% ; rr5 21:41 Body Mass Index 24.21 (68.04 kg, 167.64 cm) rr5 ED Course: 21:31 Patient arrived in ED. es 21:32 Pérez Hoff MD is Private Physician. es 21:46 Triage completed. rr5 21:47 Arm band placed on right wrist. rr5 21:48 Vogel, Faisal, RN is Primary Nurse. rr5 21:53 Jesus Muhammad MD is Attending Physician. 7 22:00 Patient has correct armband on for positive identification. Bed in low position. Call rr5 light in reach. Pulse ox on. NIBP on. 22:30 Inserted saline lock: 20 gauge in right forearm, using aseptic technique. Blood rr5 collected. 23:25 Wound care: to laceration located on left arm was cleaned with Hibiclens, dressed with rr5 Neosporin, 4X4s, Kerlix, Patient tolerated well. 23:25 No provider procedures requiring assistance completed. IV discontinued, intact, rr5 bleeding controlled, No redness/swelling at site. Pressure dressing applied. Administered Medications: 22:19 Drug: [place] 5 mg-325 mg 1 tabs {Note: rass 0.} Route: PO; rr5 23:20 Follow up: Response: No adverse reaction; Pain is decreased; RASS: Alert and Calm (0) rr5 Outcome: 23:19 Discharge ordered by . [facility] 23:35 Discharged to home via wheelchair. rr5 23:35 Condition: stable 23:35 Discharge instructions given to patient, Instructed on discharge instructions, follow up and referral plans. medication usage, Demonstrated understanding of instructions, follow-up care, medications, Prescriptions given X 1. 23:39 Patient left the ED. rr5 Signatures: Kaelyn Espino Raymond, RN RN rr5 Jesus Muhammad MD MD [facility]
--- NOTE | 2020-01-24 23:20 | EDPHYS ---
Physician Documentation [facility] Name: Sonia Camp Age: 84 yrs Sex: Female : 1935 Arrival Date: 01/24/2020 Time: 21:31 Bed 16 Private MD: Pérez Hoff ED Physician Jesus Muhammad HPI: 01/23 22:16 This 84 yrs old Female presents to ER via Wheelchair with complaints of ARM mh7 SWELLING. 22:17 The patient or guardian complains of swelling. The complaints affect the dorsal aspect mh7 of left forearm. Context: The problem was sustained at home, resulted from Patient had laceration repair to left forearm one day ago due to scraping arm on metal part of a door. She states that she noticed swelling to forearm today. She denies any re injury, redness, discharge, numbness/tingling, weakness, increased warmth, fever, nausea, or vomiting.. Onset: The symptoms/episode began/occurred today. Treatment prior to arrival includes: no previous treatment. Modifying factors: The symptoms are alleviated by nothing. the symptoms are aggravated by nothing. Associated signs and symptoms: Pertinent negatives: decreased range of motion, deformity, erythema, fever, nausea, numbness, tingling, vomiting, warmth, weakness. Severity of symptoms: At their worst the symptoms were mild, earlier today, in the emergency department the symptoms are unchanged. The patient has been recently seen at the [facility] Emergency Department, yesterday. Historical: - Allergies: 21:47 PENICILLINS (Hives, rash); rr5 - PMHx: 21:47 Atrial Fib; Gout; Pacemaker; Hypertension; rr5 - PSHx: 21:47 Tonsillectomy; Appendectomy; Tubal ligation; Cholecystectomy; foot surgery; rr5 - Immunization history:: Adult Immunizations up to date. - Social history:: Smoking status: unknown Patient/guardian denies using alcohol, street drugs, tobacco products. ROS: 22:17 Constitutional: Negative for fever, chills, and weight loss, Eyes: Negative for injury, mh7 pain, redness, and discharge, ENT: Negative for injury, pain, and discharge, Neck: Negative for injury, pain, and swelling, Cardiovascular: Negative for chest pain, palpitations, and edema, Respiratory: Negative for shortness of breath, cough, wheezing, and pleuritic chest pain, Abdomen/GI: Negative for abdominal pain, nausea, vomiting, diarrhea, and constipation, Back: Negative for injury and pain, : Negative for injury, bleeding, discharge, and swelling, Neuro: Negative for headache, weakness, numbness, tingling, and seizure, Psych: Negative for depression, anxiety, suicide ideation, homicidal ideation, and hallucinations, Allergy/Immunology: Negative for hives, rash, and allergies, Endocrine: Negative for neck swelling, polydipsia, polyuria, polyphagia, and marked weight changes, Hematologic/Lymphatic: Negative for swollen nodes, abnormal bleeding, and unusual bruising. Exam: 22:17 Constitutional: This is a well developed, well nourished patient who is awake, alert, mh7 and in no acute distress. Head/Face: Normocephalic, atraumatic. Neck: Trachea midline, no thyromegaly or masses palpated, and no cervical lymphadenopathy. Supple, full range of motion without nuchal rigidity, or vertebral point tenderness. No Meningismus. Chest/axilla: Normal chest wall appearance and motion. Nontender with no deformity. No lesions are appreciated. Cardiovascular: Regular rate and rhythm with a normal S1 and S2. No gallops, murmurs, or rubs. Normal PMI, no JVD. No pulse deficits. Respiratory: Lungs have equal breath sounds bilaterally, clear to auscultation and percussion. No rales, rhonchi or wheezes noted. No increased work of breathing, no retractions or nasal flaring. Abdomen/GI: Soft, non-tender, with normal bowel sounds. No distension or tympany. No guarding or rebound. No evidence of tenderness throughout. Back: No spinal tenderness. No costovertebral tenderness. Full range of motion. 22:17 Neuro: Awake and alert, GCS 15, oriented to person, place, time, and situation. Cranial nerves II-XII grossly intact. Motor strength 5/5 in all extremities. Sensory grossly intact. Cerebellar exam normal. Normal gait. Psych: Awake, alert, with orientation to person, place and time. Behavior, mood, and affect are within normal limits. 22:17 Musculoskeletal/extremity: Extremities: noted in the dorsal aspect of left forearm: laceration, ROM: intact in all extremities, Circulation is intact in all extremities. Pulses: are normal with no appreciated deficits, Perfusion: the patient is normally perfused throughout, Perfusion: the extremity is normally perfused throughout, Sensation intact. Compartment Syndrome exam of affected extremity: is normal. no numbness, no tingling, no sensation deficit, no palor, no weak pulses, Joints: All joints appear normal with full range of motion. 22:17 Skin: Wound recheck: Suture laceration closure: the edges are well approximated, no evidence of dehiscence, no drainage, no erythema. 23:14 Musculoskeletal/extremity: Extremities: swelling, hematoma. [facility] 23:14 Skin: Wound recheck: Hematoma: continued pain, continued swelling. Vital Signs: 21:41 BP 108 / 48; Pulse 70; Resp 16; Temp 98.6; Pulse Ox 97% ; Weight 68.04 kg; Height 5 ft. rr5 6 in. (167.64 cm); Pain 5/10; 23:00 BP 110 / 62; Pulse 75; Resp 19; Pulse Ox 98% on R/A; rr5 23:30 BP 121 / 70; Pulse 72; Resp 17; Pulse Ox 98% ; rr5 21:41 Body Mass Index 24.21 (68.04 kg, 167.64 cm) rr5 MDM: 22:15 Patient medically screened. [facility] 23:14 Differential diagnosis: contusion, abrasion, hematoma, wound infection. Data reviewed: [facility] vital signs, nurses notes, old medical records, lab test result(s), CBC, electrolytes, PT/PTT. Data interpreted: Pulse oximetry: on room air is 97 %. Interpretation: normal. Counseling: I had a detailed discussion with the patient and/or guardian regarding: the historical points, exam findings, and any diagnostic results supporting the discharge/admit diagnosis, lab results, the need for outpatient follow up, to return to the emergency department if symptoms worsen or persist or if there are any questions or concerns that arise at home. Response to treatment: the patient's symptoms have markedly improved after treatment. 01/23 22:19 Order name: Protime (+inr) [facility] 01/23 22:19 Order name: Ptt, Activated rr 01/23 22:19 Order name: CBC with Diff rr 01/23 22:19 Order name: Basic Metabolic Panel; Complete Time: 23:11 [facility] 01/23 22:20 Order name: Protime (+INR); Complete Time: 23:03 EDMS 01/23 22:20 Order name: PTT, Activated Partial Thromb; Complete Time: 23:03 EDMS 01/23 22:54 Order name: Manual Differential EDMS Administered Medications: 22:19 Drug: Lilly 5 mg-325 mg 1 tabs {Note: rass 0.} Route: PO; rr5 23:20 Follow up: Response: No adverse reaction; Pain is decreased; RASS: Alert and Calm (0) rr5 Disposition: 01/24/20 23:19 Discharged to Home. Impression: Hematoma-Left Forearm, Wound Check-Laceration. - Condition is Stable. - Discharge Instructions: Hematoma, [id number], Wound Check. - Prescriptions for Tylenol- Codeine #3 300-30 mg Oral Tablet - take 1 tablet by ORAL route every 6 hours As needed; 12 tablet. - Medication Reconciliation Form, Thank You Letter, Antibiotic Education, Prescription Opioid Use form. - Follow up: Private Physician; When: 1 - 2 days; Reason: Worsening of condition, Recheck today's complaints, Re-evaluation by your physician. - Problem is an ongoing problem. - Symptoms have improved. Signatures: Dispatcher [employer] EDND Faisal Vogel RN RN rr5 Jesus Muhammad MD MD mh7 Corrections: (The following items were deleted from the chart) 23:39 23:19 01/24/2020 23:19 Discharged to Home. Impression: Hematoma-Left Forearm; Wound rr5 Check-Laceration. Condition is Stable. Forms are Medication Reconciliation Form, Thank You Letter, Antibiotic Education, Prescription Opioid Use. Follow up: Private Physician; When: 1 - 2 days; Reason: Worsening of condition, Recheck today's complaints, Re-evaluation by your physician. Problem is an ongoing problem. Symptoms have improved. mh7
[2020-01-24 23:51] VITALS: BP 108/48; TEMP 98.6; O2SAT 97
[2020-01-25 01:21] LABS: Blood Morphology Comment NOT SEEN (NOT SEEN); Platelet Estimate ADEQ
== END 2020-01-24 23:39 | disposition home or self-care (01) ==
LOC: ER 21:29
DX: S51.812S Laceration without foreign body of left forearm, sequela (principal); S50.12XA Contusion of left forearm, initial encounter; I10 Essential (primary) hypertension; Z88.0 Allergy status to penicillin; Z95.0 Presence of cardiac pacemaker
CPT/HCPCS: 36415; 80048; 85025; 85610; 85730; 99284

== ENCOUNTER 2021-06-24 15:52 | Inpatient (IN) | payer MEDICARE, OTHER ==
[2021-06-24 16:40] LABS: Urine Blood Trace-intact (Negative); Urine Glucose Negative (Negative); Urine Protein Negative (Negative); Urine Specific Gravity 1.015 (1.005-1.030)
[2021-06-24 16:47] LABS: Absolute Lymphocytes (CBC) 2.3 K/uL (0.7-4.9); Basophils % 0.9 % (0-1.3); Hematocrit 37.9 % (36.0-45.0); Lymphocytes % 32.1 % (15.3-44.8); MPV 10.6 fL (7.6-11.3)
[2021-06-24 16:48] LABS: Protime INR 1.21
[2021-06-24 16:52] LABS: Urine Bacteria <20 /HPF (<20); Urine RBC <5 /HPF (NONE SEEN)
--- NOTE | 2021-06-24 17:04 | RAD REPORT ---
EXAM DESCRIPTION: CT - Head Brain Wo Cont - 06/24/2021 4:54 pm CLINICAL HISTORY: AMS Headache, drowsiness COMPARISON: Head Brain Wo Cont dated 09/03/2017; CTFACIAL BONES W MPR dated 05/12/2014 TECHNIQUE: All CT scans are performed using dose optimization technique as appropriate and may inclu de automated exposure control or mA/KV adjustment according to patient size. FINDINGS: No intracranial hemorrhage, hydrocephalus or extra-axial fluid collection.Mild generalized brain atrophy is present with mild periventricular and deep white matter chronic microvascular ische werner changes.No areas of brain edema or evidence of midline shift. The paranasal sinuses and mastoids are clear. The calvarium is intact. Left vertebral artery is ather osclerotic. IMPRESSION: No acute intracranial abnormality.
[2021-06-24 17:24] LABS: Albumin 3.9 g/dL (3.4-5.0); Bilirubin Direct 0.1 mg/dL (0-0.2); Bilirubin Total 0.4 mg/dL (0.2-1.0); Magnesium 2.3 mg/dL (1.8-2.4); Potassium 3.5 mmol/L (3.5-5.1); Protein, Total 7.6 g/dL (6.4-8.2); Troponin (Emerg Dept Use Only) 0.04 ng/mL (0.0-0.045)
--- NOTE | 2021-06-24 18:00 | ER ---
Nurse's Notes [facility] Name: Sonia Camp Age: 85 yrs Sex: Female : 1935 Arrival Date: 06/24/2021 Time: 15:53 Bed 25 Private MD: Pérez Hoff Diagnosis: Hypercalcemia;UTI/ Urinary tract infection, site not specified Presentation: 06/24 15:58 Chief complaint: Patient states: "I just feel crazy like not myself since yesterday aa5 morning". Pt c/o generalized weakness and c/o back pain. Coronavirus screen: At this time, the client does not indicate any symptoms associated with coronavirus-19. Ebola Screen: No symptoms or risks identified at this time. Initial Sepsis Screen: Does the patient meet any 2 criteria? No. Patient's initial sepsis screen is negative. Does the patient have a suspected source of infection? No. Patient's initial sepsis screen is negative. Risk Assessment: Do you want to hurt yourself or someone else? Patient reports no desire to harm self or others. Onset of symptoms was June 2021. 15:58 Method Of Arrival: Wheelchair aa5 15:58 Acuity: DEEPA 3 aa5 Triage Assessment: 21:41 Respiratory: Onset: The symptoms/episode began/occurred gradually. ld1 21:42 Respiratory: the patient has mild shortness of breath. ld1 Historical: - Allergies: 15:59 PENICILLINS (Hives, rash); aa5 - PMHx: 15:59 Atrial Fib; Gout; Hypertension; Pacemaker; aa5 - Immunization history:: Client reports receiving the 2nd dose of the Covid vaccine. - Social history:: Smoking status: Patient denies any tobacco usage or history of. Screenin:04 Abuse screen: Denies threats or abuse. Denies injuries from another. Nutritional ld1 screening: No deficits noted. Tuberculosis screening: No symptoms or risk factors identified. Fall Risk None identified. Assessment: 16:04 General: Appears in no apparent distress. comfortable, Behavior is calm, cooperative, ld1 appropriate for age. Pain: Denies pain. Neuro: Level of Consciousness is awake, alert, obeys commands, Oriented to person, place, time, situation, Appropriate for age Reports dizziness, weakness. Cardiovascular: Capillary refill < 3 seconds Patient's skin is warm and dry. Rhythm is regular. Respiratory: Airway is patent Respiratory effort is even, unlabored, Respiratory pattern is regular, symmetrical, Breath sounds are clear bilaterally. GI: Abdomen is flat, non-distended. : No signs and/or symptoms were reported regarding the genitourinary system. EENT: No signs and/or symptoms were reported regarding the EENT system. Derm: No signs and/or symptoms reported regarding the dermatologic system. Musculoskeletal: No signs and/or symptoms reported regarding the musculoskeletal system. 17:23 Reassessment: Patient appears in no apparent distress at this time. Patient and/or ld1 family updated on plan of care and expected duration. Pain level reassessed. Patient is alert, oriented x 3, equal unlabored respirations, skin warm/dry/pink. 18:30 Reassessment: Patient appears in no apparent distress at this time. Patient and/or ld1 family updated on plan of care and expected duration. Pain level reassessed. Patient is alert, oriented x 3, equal unlabored respirations, skin warm/dry/pink. 20:47 Reassessment: Patient appears in no apparent distress at this time. Patient and/or ld1 family updated on plan of care and expected duration. Pain level reassessed. Patient is alert, oriented x 3, equal unlabored respirations, skin warm/dry/pink. Resting in bed. RR 18. Vital Signs: 15:58 BP 134 / 58; Pulse 70; Resp 18 S; Temp 97.6(TE); Pulse Ox 96% on R/A; Weight 65.77 kg aa5 (R); Height 5 ft. 6 in. (167.64 cm) (R); 16:04 BP 137 / 62; Pulse 75; Resp 18; Pulse Ox 97% on R/A; ld1 17:23 BP 153 / 62; Pulse 70; Resp 18; Pulse Ox 98% on R/A; ld1 18:30 BP 149 / 60; Pulse 72; Resp 18; Pulse Ox 99% on R/A; ld1 20:47 BP 149 / 67; Pulse 67; Resp 18; Pulse Ox 95% on R/A; ld1 15:58 Body Mass Index 23.40 (65.77 kg, 167.64 cm) aa5 ED Course: 15:53 Patient arrived in ED. am2 15:53 Pérez Hoff MD is Private Physician. am2 15:58 Arm band placed on. aa5 15:59 Triage completed. aa5 16:04 Lavern Chavez, RN is Primary Nurse. ld1 16:04 Patient has correct armband on for positive identification. Placed in gown. Bed in low ld1 position. Call light in reach. Side rails up X2. surveillance system monitor on. Pulse ox on. NIBP on. Door closed. Noise minimized. Warm blanket given. 16:04 No provider procedures requiring assistance completed. ld1 16:10 Magdaleno Keller MD is Attending Physician. sp3 16:40 Inserted saline lock: 20 gauge in right forearm, using aseptic technique. Blood ld1 collected. 16:54 CT Head Brain wo Cont In Process Unspecified. EDMS 17:25 Notified ED physician of a critical lab result(s). Calcium 14.9. aa5 17:59 Pérez Hoff MD is Hospitalizing Provider. sp3 18:03 XRAY Chest (1 view) In Process Unspecified. EDMS 18:23 COVID-19 SARS RT PCR (Document "Date of Onset" if Symptomatic) Sent. ld1 21:41 Patient admitted, IV remains in place. ld1 Administered Medications: No medications were administered Outcome: 17:59 Decision to Hospitalize by Provider. sp3 21:41 Admitted to Med/surg accompanied by tech, via wheelchair, room 212, with chart, Report ld1 called to KAT Montes De Oca 21:41 Condition: stable 21:41 Instructed on the need for admit. 22:02 Patient left the ED. ld1 Signatures: Dispatcher [employer] EDNE Abigail Young, RN RN Breanne Patton am2 Lavern Chavez, RN RN ld1 Magdaleno Keller MD MD sp3
--- NOTE | 2021-06-24 18:00 | EDPHYS ---
Physician Documentation [facility] Name: Sonia Camp Age: 85 yrs Sex: Female : 1935 Arrival Date: 06/24/2021 Time: 15:53 Bed 25 Private MD: Pérez Hoff ED Physician Magdaleno Keller HPI: 06/24 16:31 This 85 yrs old Female presents to ER via Wheelchair with complaints of sp3 Doesn't Feel Right. 16:31 85-year-old female with a history of hypertension, atrial fibrillation status post sp3 pacemaker now presents referred from her PCP for "not feeling right". Patient was in cardiac rehab and was unable to finish due to her symptoms which she cannot pinpoint precisely. She states that the registered respiratory technician sat and talked with her told her to follow-up with her PCP. She followed up with the PCP by telephone and he directed her here. She denies having any sort of pain, headache, fever, URI symptoms, neck pain, shortness of breath, chest pain, back pain, abdominal pain, nausea, vomiting, diarrhea, syncope, focal neurological symptoms, rash, any other symptoms at this time. Patient just states that she "does not feel right and thinks she may be going a little crazy". She denies any suicide ideation, homicidal ideation, psychosis and contracts for her safety.. Historical: - Allergies: 15:59 PENICILLINS (Hives, rash); aa5 - PMHx: 15:59 Atrial Fib; Gout; Hypertension; Pacemaker; aa5 - Immunization history:: Client reports receiving the 2nd dose of the Covid vaccine. - Social history:: Smoking status: Patient denies any tobacco usage or history of. ROS: 16:33 Constitutional: Negative for fever, chills, and weight loss, Eyes: Negative for injury, sp3 pain, redness, and discharge, ENT: Negative for injury, pain, and discharge, Neck: Negative for injury, pain, and swelling, Cardiovascular: Negative for chest pain, palpitations, and edema, Respiratory: Negative for shortness of breath, cough, wheezing, and pleuritic chest pain, Abdomen/GI: Negative for abdominal pain, nausea, vomiting, diarrhea, and constipation, Back: Negative for injury and pain, : Negative for injury, bleeding, discharge, and swelling, MS/Extremity: Negative for injury and deformity, Skin: Negative for injury, rash, and discoloration, Neuro: Negative for headache, weakness, numbness, tingling, and seizure, Allergy/Immunology: Negative for hives, rash, and allergies, Endocrine: Negative for neck swelling, polydipsia, polyuria, polyphagia, and marked weight changes, Hematologic/Lymphatic: Negative for swollen nodes, abnormal bleeding, and unusual bruising. 16:33 All other systems are negative. Exam: 16:33 ECG was reviewed by the Attending Physician. EKG demonstrates paced rhythm at 70 bpm sp3 with successful capture. Vital Signs: 15:58 BP 134 / 58; Pulse 70; Resp 18 S; Temp 97.6(TE); Pulse Ox 96% on R/A; Weight 65.77 kg aa5 (R); Height 5 ft. 6 in. (167.64 cm) (R); 16:04 BP 137 / 62; Pulse 75; Resp 18; Pulse Ox 97% on R/A; ld1 17:23 BP 153 / 62; Pulse 70; Resp 18; Pulse Ox 98% on R/A; ld1 18:30 BP 149 / 60; Pulse 72; Resp 18; Pulse Ox 99% on R/A; ld1 20:47 BP 149 / 67; Pulse 67; Resp 18; Pulse Ox 95% on R/A; ld1 15:58 Body Mass Index 23.40 (65.77 kg, 167.64 cm) aa5 MDM: 16:12 Patient medically screened. sp3 16:34 Data reviewed: vital signs, nurses notes. ED course: 85-year-old female with sp3 nonspecific symptoms. I do not believe patient is having sepsis, ACS, PE, vascular compromise, pneumonia or infection, psychosis, delirium, or any other critical findings. Will assess patient with broad work-up including CT scan of the head, laboratory values, UA, EKG, chest x-ray and reassuring discharge home if patient has no acute findings. Neurological exam is normal and I do not believe patient is having an acute CVA at this time.. 17:31 ED course: Patient's calcium is elevated to 14 and she also has a mild UTI. Will admit sp3 to Dr. Hoff service for further work-up and treatment. Hypercalcemia explains her mental status changes and will need to be corrected.. 06/24 16:19 Order name: Basic Metabolic Panel; Complete Time: 17:29 3 06/24 16:19 Order name: CBC with Diff; Complete Time: 17:29 sp3 06/24 16:19 Order name: LFT's; Complete Time: 17:29 sp3 06/24 16:19 Order name: Magnesium; Complete Time: 17:29 3 06/24 16:19 Order name: NT PRO-BNP; Complete Time: 17:29 3 06/24 16:19 Order name: PT-INR; Complete Time: 17:29 sp3 06/24 16:19 Order name: Troponin (emerg Dept Use Only); Complete Time: 17:29 3 06/24 16:19 Order name: XRAY Chest (1 view) [facility] 06/24 16:19 Order name: CT Head Brain wo Cont; Complete Time: 17:29 3 06/24 16:19 Order name: UA MICROSCOPIC; Complete Time: 17:29 3 06/24 16:40 Order name: Urine Dipstick-Ancillary; Complete Time: 17:29 EDMS 06/24 16:53 Order name: Urine Culture [facility] 06/24 17:50 Order name: Pth,Intact la1 06/24 18:00 Order name: COVID-19 SARS RT PCR (Document "Date of Onset" if Symptomatic) bd 06/24 16:19 Order name: EKG; Complete Time: 16:19 3 06/24 16:19 Order name: Cardiac monitoring; Complete Time: 16:20 3 06/24 16:19 Order name: EKG - Nurse/Tech; Complete Time: 16:39 3 06/24 16:19 Order name: IV Saline Lock; Complete Time: 16:39 sp3 06/24 16:19 Order name: Labs collected and sent; Complete Time: 16:39 sp3 06/24 16:19 Order name: O2 Per Protocol; Complete Time: 16:20 3 06/24 16:19 Order name: O2 Sat Monitoring; Complete Time: 16:20 sp3 06/24 16:19 Order name: Urine Dipstick-Ancillary (obtain specimen); Complete Time: 16:39 sp3 Administered Medications: No medications were administered Disposition Summary: 06/24/21 17:59 Hospitalization Ordered Hospitalization Status: Inpatient Admission sp3 Provider: Pérez Hoff sp3 [facility] (Inpatient[facility] sp3 Condition: Stable sp3 Problem: new sp3 Symptoms: are resolved sp3 Bed/Room Type: Standard sp3 Room Assignment: 212(06/24/21 21:31) mw Diagnosis - Hypercalcemia sp3 - UTI/ Urinary tract infection, site not specified sp3 Forms: - Medication Reconciliation Form sp3 - SBAR form sp3 Signatures: Dispatcher [employer] EDOK Diana Garcia RN RN Abigail Young RN RN aa5 Magdaleno Keller MD MD sp3 Corrections: (The following items were deleted from the chart) 17:56 17:31 ED course: Patient's calcium is elevated to 14 and she also has a mild UTI. Will sp3 admit to hospitalist service for further work-up and treatment. Hypercalcemia explains her mental status changes and will need to be corrected.. sp3 21:31 17:59 sp3 mw
--- NOTE | 2021-06-24 18:24 | RAD REPORT ---
EXAM DESCRIPTION: RAD - Chest Single View - 06/24/2021 6:04 pm CLINICAL HISTORY: weakness Chest pain. COMPARISON: Chest Single View dated 06/13/2019; Chest Pa And Lat (2 Views) dated 09/10/2017; Chest Si ngle View dated 09/03/2017; Abdomen 1 View (KUB) dated 08/13/2017 FINDINGS: Portable technique limits examination quality. Calcified granuloma is present in the right lung base. Mild interstitial pulmonary edema is seen. The heart is moderately enlarged in size. Dual lead pacer device is present. IMPRESSION: Mild CHF.
[2021-06-24] MEDS ORDERED: NA CHLORIDE 0.9% 1,000 ML IV SCH (21:56)
[2021-06-24] MEDS ORDERED: ONDANSETRON 4 MG/2 ML VIAL IV PRN (21:56)
[2021-06-24] MEDS ORDERED: POTASSIUM CL SA 10 MEQ TAB PO ONE (22:23)
[2021-06-24 22:55] VITALS: BMI 24.0
[2021-06-24] MEDS: HEPARIN 5000 UNIT/ML 1 ML VIAL SQ SCH (22:58)
[2021-06-25 06:09] LABS: Absolute Lymphocytes (CBC) 2.4 K/uL (0.7-4.9); Basophils % 0.9 % (0-1.3); Hematocrit 35.9 % (36.0-45.0); Lymphocytes % 39.1 % (15.3-44.8); MPV 10.6 fL (7.6-11.3); RBC Red Blood Cell Count 3.75 M/uL (3.86-4.86)
[2021-06-25 06:28] LABS: Albumin 3.1 g/dL (3.4-5.0); Bilirubin Total 0.4 mg/dL (0.2-1.0); Potassium 3.2 mmol/L (3.5-5.1); Protein, Total 6.5 g/dL (6.4-8.2)
[2021-06-25 06:40] LABS: Magnesium 2.1 mg/dL (1.8-2.4); Phosphorus 2.5 mg/dL (2.5-4.9); Thyroid Stimulating Hormone 0.598 uIU/mL (0.360-3.740)
[2021-06-25] MEDS ORDERED: POTASSIUM CL SA 10 MEQ TAB PO ONE (09:00)
[2021-06-25] MEDS: HEPARIN 5000 UNIT/ML 1 ML VIAL SQ SCH ×2 (09:16→20:45)
[2021-06-25] MEDS: CEFTRIAXONE 1 GM/NS 50 ML 1 GM/50 ML BAG IV SCH (09:16)
[2021-06-25] MEDS ORDERED: FUROSEMIDE 40 MG/4 ML VIAL IV ONE (09:55)
[2021-06-25] MEDS ORDERED: NA CHLORIDE 0.9% 1,000 ML IV ONE ×3 (09:55→10:40)
[2021-06-25] MEDS ORDERED: NA CHLORIDE 0.9% 2,000 ML IV ONE (10:01)
--- NOTE | 2021-06-25 11:02 | RAD REPORT ---
EXAM DESCRIPTION: RAD - Lumbar Spine 3 Views - 06/25/2021 10:41 am CLINICAL HISTORY: low back pain Radiculopathy COMPARISON: No comparisons FINDINGS: Vertebral body heights appear maintained. No compression fracture noted. Moderate disc thi nning at L5-S1 with vacuum disc degeneration and small posterior osteophytes. Additional mild spondyl osis is seen throughout the lumbar spine. No spondylolysis or spondylolisthesis. Heavy aortic atherosclerosis. IMPRESSION: Mild lumbar degenerative spondylosis is present, most notable at L5-S1.
--- NOTE | 2021-06-25 11:18 | RAD REPORT ---
EXAM DESCRIPTION: CT - Thorax Wo Con CLINICAL HISTORY: Chest pain chf COMPARISON: Thorax Wo Con dated 04/28/2017 FINDINGS: Heavily calcified nodule is present in the right lung base. Mild emphysema is present. No pleural thickening or pleural effusion. No pneumothorax. Pacemaker wires are present. No axillary, mediastinal or hilar adenopathy. No concerning bony finding. No gross upper abdominal finding. All CT scans are performed using dose optimization technique as appropriate and may include automated exposure control or mA/KV adjustment according to patient size. IMPRESSION: No acute or aggressive intrathoracic finding.
--- NOTE | 2021-06-25 11:27 | CON ---
Date of Consultation: 06/25/2021 Reason For Consultation: Elevated BUN and creatinine, fluid management, hypercalcemia. History Of Present Illness: This is a pleasant 85-year-old female with significant past medical history of hypertension, hyperlipidemia, questionable of hyperglycemia, hypothyroidism, cardiac arrhythmia, AFib status post ICD, depression, chronic low back pain, the patient was in her regular state of health. Apparently, the patient was brought to the hospital for altered mental status and shortness of breath. According to the patient, her altered mental status has been happened recently. Currently, the patient back to her baseline. The patient denied any chest pain. Denied any shortness of breath. The patient denied any orthopnea. According to the patient, the patient never had any leg swelling. Reviewing the record, the patient apparently used to be on hydrochlorothiazide, currently on Lasix and metolazone, the patient was diagnosed with hyperglycemia almost 2 months ago by her insurance. Repeated blood sugar was okay. The patient currently taking metolazone, Lasix, vitamin D, and calcium with vitamin D. Upon arrival to the hospital, calcium was above 14. The patient was started on IV hydration. Vitamin D and PTH are still pending. The patient again denied any shortness of breath. Past Medical History: Includes; 1. AFib, status post ICD. 2. Hyperlipidemia. 3. Hypothyroidism. 4. Hypertension. 5. Low back pain. Past Surgical History: Includes; 1. Cholecystectomy. 2. Appendectomy. 3. Foot surgery. 4. Tubal ligation. 5. Tonsillectomy. Allergies: TO PENICILLIN. Home Medications: Include; 1. Lasix. 2. Metolazone. 3. Vitamin D (ergocalciferol). 4. Calcium with vitamin D. 5. Levothyroxine. 6. Pravastatin. 7. Xarelto. 8. Allopurinol. 9. Metoprolol. Social History: Denied smoking. Denied drinking. Denied drug abuse. Family History: Positive for hypertension. Review of Systems: Head and Neck: No red eye. No ear pain. GI: Has epigastric pain. Has dry mouth. : No polyuria. No dysuria. No hematuria. Emergency Nurse: No vaginal discharge. Respiratory: Has shortness of breath. Cardiovascular: No chest pain. No orthopnea. No leg swelling. Endocrine: No polydipsia. Skin: No rash. Neuro: Has altered mental status. Musculoskeletal: Has low back pain. Physical Examination: General: When I saw the patient; the patient lying in bed, comfortable on room air, except complaining from a dry mouth. Vital Signs: Blood pressure 133/60, pulse of 70, afebrile. Chest: Clear to auscultation. Heart: S1, S2. Regular. Abdomen: Soft, nontender. Extremity: No edema. Neurologic: Alert. No focality. Skin: No rash. Lymph Node: No lymphadenopathy. No organomegaly. Laboratory Data: WBC 6.1, H and H 11.7/35.9, platelets 186. Sodium 141, potassium 3.2, bicarb 33, BUN 56, creatinine 1.4, calcium 13.6, albumin 3.1, corrected calcium 14.4. Upon presentation to the hospital; creatinine 1.6, GFR 29, calcium 14.9 with albumin 3.9. WBC 6.1, H and H 11.7/35.9, platelets 186. Current Medications: The patient on include IV fluid of normal saline, ceftriaxone, KCl. Assessment And Plan: 1. Acute kidney injury on chronic kidney disease, baseline creatinine 1.3-1.2 back in June 2020 with GFR of 35-40 secondary to calcium diuresis, prerenal, superimposed with Lasix and metolazone, looked to me still on the dry side. I agree with holding all the diuresis, bolus the patient with 2 L, and we will give single dose of Lasix after. With the presence of the anemia, I am going to send for serum protein electrophoresis and we will do lumbar spinal x-ray and we will follow up the patient. We will send for PC ratio and repeat ultrasound. 2. Alkalosis secondary to dehydration secondary to calcium diuresis and Lasix with metolazone. I agree with holding the Lasix. We will start aggressive hydration. 3. Hypernatremia secondary to depletion as above. 4. Hypercalcemia with the presence of interstitial infiltration. Our differential diagnosis is;. a. Sarcoidosis. b. Milk alkaline. Currently, neurological symptoms have been resolved. c. Light chain disease in the presence of the anemia. I am going to go ahead and discontinue Lasix and metolazone. d. Bolus the patient with 2 L of normal saline and give the patient 40 Lasix. Continue maintaining the patient on 1, 25 q.8 h. I agree with sending PTH, vitamin D 1, 25 OH and vitamin D, 25 OH to rule out milk alkaline and we will send for serum protein electrophoresis to rule out any paraneoplastic. We will send for CT lung to rule out any sarcoidosis and we will monitor for improvement for the patient. I am going to go ahead and send for protein creatinine to quantify proteinuria. 5. Urinary tract infection. I agree with current antibiotic. We will follow up the culture. 6. Hypertension with the presence of acute kidney injury and hypercalcemia. Hold diuresis, hold KARI inhibitor and ARB, and we will follow up. 7. Hypokalemia. I agree with supplement. We will follow up. Thank you, Dr. Hoff for allowing us to participate in the care of your patient. time spend exam the patient face to face placing order , reviewing lab and radiology data , discussing the case with the nursing staff and other steamfitter including hospitalist and other home sales consultant on the case 65 min ARNOLDO Voice ID: [id number] Report ID: [id number] ZHANG
--- NOTE | 2021-06-25 12:06 | RAD REPORT ---
EXAM DESCRIPTION: US - Renal Ultrasound-Complete - 06/25/2021 11:09 am CLINICAL HISTORY: CURT Flank pain COMPARISON: ABDOMINAL EXAM COMPLETE dated 09/18/2015 FINDINGS: Both kidneys are mildly echogenic compatible with underlying medical renal disease. Cortic al thinning is noted bilaterally. The right kidney measures 10.5 x 4.4 x 4.0 cm. No hydronephrosis, focal mass or perinephric fluid. The left kidney measures 7.3 x 4.6 x 4.5 cm. No hydronephrosis, focal mass or perinephric fluid. The urinary bladder is incompletely distended without gross abnormality seen. IMPRESSION: Mildly echogenic kidneys bilaterally most compatible with medical renal disease.
[2021-06-25] MEDS: NA CHLORIDE 0.9% 1,000 ML IV SCH ×2 (13:20→23:22)
[2021-06-25 15:47] LABS: Urine Appearance CLEAR (Clear); Urine Bilirubin NEGATIVE (Negative); Urine Blood NEGATIVE (Negative); Urine Color YELLOW (Yellow); Urine Glucose NEGATIVE (Negative); Urine Protein NEGATIVE (Negative); Urine Specific Gravity <=1.005 (1.005-1.030); Urine Urobilinogen 0.2 mg/dL (0.2-1.0)
[2021-06-25 16:02] LABS: Urine Microscopic Reflex ORDER UMIC
[2021-06-25 16:05] LABS: UR PROTEIN < 5.0 mg/dL (<11.9); Urine Protein/Creatinine Ratio ND ratio (<0.15)
[2021-06-25 16:16] LABS: Urine Bacteria <20 /HPF (<20); Urine RBC NONE SEEN /HPF (NONE SEEN)
[2021-06-26 05:11] LABS: Absolute Lymphocytes (CBC) 2.2 K/uL (0.7-4.9); Basophils % 0.9 % (0-1.3); Hematocrit 30.3 % (36.0-45.0); Lymphocytes % 40.3 % (15.3-44.8); MPV 10.2 fL (7.6-11.3); RBC Red Blood Cell Count 3.16 M/uL (3.86-4.86)
[2021-06-26] MEDS: NA CHLORIDE 0.9% 1,000 ML IV SCH ×2 (05:36→10:15)
[2021-06-26 05:50] LABS: Albumin 2.4 g/dL (3.4-5.0); Bilirubin Total 0.3 mg/dL (0.2-1.0); Ferritin 72.8 ng/mL (8-388); Folic Acid, (Folate) 7.9 ng/mL (3.1-17.5); Magnesium 1.7 mg/dL (1.8-2.4); Phosphorus 1.6 mg/dL (2.5-4.9); Potassium 3.7 mmol/L (3.5-5.1); Protein, Total 5.4 g/dL (6.4-8.2); Uric Acid 2.5 mg/dL (2.6-6.0)
[2021-06-26 06:23] LABS: Blood Morphology Comment NOT SEEN (NOT SEEN); Platelet Estimate ADEQ
[2021-06-26] MEDS ORDERED: MAGNESIUM SULFATE 1 gm IVPB 1 GM/100 ML BAG IV ONE (07:00)
[2021-06-26] MEDS: HEPARIN 5000 UNIT/ML 1 ML VIAL SQ SCH ×2 (07:58→20:12)
[2021-06-26] MEDS: CEFTRIAXONE 1 GM/NS 50 ML 1 GM/50 ML BAG IV SCH (08:52)
[2021-06-26] MEDS ORDERED: POTASSIUM PHOS IN 0.9 % NACL 15 MMOL/250 ML BAG IV ONE (09:00)
--- NOTE | 2021-06-26 11:26 | EKG ---
Test Date: 2021-06-24 Test Time: 16:28:21 Director Safety Council: SHAREE MEASUREMENT RESULTS: Intervals: Rate: 70 VA: QRSD: 154 QT: 452 QTc: 488 Briggs: P: VA: QRS: 258 T: 48 INTERPRETIVE STATEMENTS: Electronic ventricular pacemaker Compared to ECG 06/13/2019 13:05:48 No significant changes Electronically Signed On 06-26-21 11:20:54 COMMERCIAL MANAGER by Laz Marshall
--- NOTE | 2021-06-26 13:18 | PN ---
Date of Progress Note: 06/26/2021 Subjective: The patient was admitted with altered mental status, severe hypercalcemia, acute kidney injury. Yesterday, we started the patient on aggressive hydration. We discontinued calcium and vitamin D supplement and diuresis. The patient feeling better, back to her baseline as mental status. No nausea. No vomiting. No shortness of breath. Physical Examination: Vital Signs: Blood pressure 134/62, pulse of 72, afebrile. The patient had good urine output of 1100 voiding. The patient was positive of 3300. Chest: Clear to auscultation. Heart: S1, S2 . Regular. Abdomen: Soft, nontender. Extremity: No edema. Neurologic: Alert. No focality. No tremor. Laboratory Data: WBC 5.4, H and H 10.2/30.3, platelets 155. Sodium 147, potassium 3.7, bicarb 29, BUN 41, creatinine 1.2, GFR 42 back to baseline, uric acid down to 2.5, calcium 10.4, phosphorus 1.6, magnesium 1.7. Iron saturation of 32, ferritin 72, albumin 2.4. Serum protein electrophoresis is still pending. B12 245. TSH 0.5. PTH 11, appropriately suppressed. Vitamin D still pending. H and H 10.2/30.3, platelets 159. Urinalysis, specific gravity down to 1.005, negative for infection. Current Medications: The patient on include ceftriaxone, heparin, received 1 dose of Lasix and received 2 L yesterday of IV fluid bolus, magnesium and potassium phosphate. Renal ultrasound showing 10.5/7.3 echogenic. No masses. Lumbar spine scoliosis. No lytic lesion. CT chest, no interstitial infiltration, only emphysematous change. Assessment And Plan: 1. Acute kidney injury on chronic kidney disease secondary to over diuresis superimposed with calcium diuresis, recovered very well, back to baseline, normal sized kidney, non-proteinuric. Currently, the patient looked to me on the normal volume side. I am going to go ahead and decrease IV fluid to 50 per hour, plan to discontinue it by tomorrow. Keep holding diuresis. 2. Hypercalcemia, mostly secondary to milk alkaline secondary to vitamin D intake/calcium carbonate intake. Complicated with altered mental status, superimposed with diuresis. Recovered, back to baseline. Currently, the patient improved. Sarcoidosis not supported with finding on the CT as negative. PTH appropriately suppressed. Did not find any sign of any lytic lesion. Serum protein electrophoresis is still pending. I am going to decrease IV fluid to 50 per hour, plan to discontinue it and we will continue to monitor. Please keep holding any calcium or vitamin D supplement. Keep holding any diuresis for the time being. We will follow up the patient. 3. Hypernatremia secondary to depletional. We will decrease IV fluid. 4. Alkalosis secondary to contraction alkalosis secondary to diuresis, improving. We will monitor. 5. Hypokalemia, hypomagnesemia, hypophosphatemia. We will supplement. 6. Hypertension, controlled. 7. Shortness of breath, mostly secondary to emphysematous change as by the CT. The patient is going to need Pulmonary evaluation. time spend exam the patient face to face placing order , reviewing lab and radiology data , discussing the case with the nursing staff and other sales team manager including hospitalist and other sap security consultant on the case 35 min ARNOLDO Voice ID: [id number] Report ID: [id number] MTDD
[2021-06-27] MEDS: NA CHLORIDE 0.9% 1,000 ML IV SCH ×2 (02:33→06:15)
[2021-06-27 05:49] LABS: Absolute Lymphocytes (CBC) 2.2 K/uL (0.7-4.9); Basophils % 0.8 % (0-1.3); Hematocrit 31.4 % (36.0-45.0); Lymphocytes % 32.6 % (15.3-44.8); MPV 10.7 fL (7.6-11.3); RBC Red Blood Cell Count 3.26 M/uL (3.86-4.86)
[2021-06-27 06:01] LABS: Albumin 2.7 g/dL (3.4-5.0); Bilirubin Total 0.3 mg/dL (0.2-1.0); Magnesium 2.1 mg/dL (1.8-2.4); Phosphorus 1.7 mg/dL (2.5-4.9); Protein, Total 5.7 g/dL (6.4-8.2)
[2021-06-27] MEDS: CEFTRIAXONE 1 GM/NS 50 ML 1 GM/50 ML BAG IV SCH (08:31)
[2021-06-27] MEDS: HEPARIN 5000 UNIT/ML 1 ML VIAL SQ SCH ×2 (08:31→22:03)
[2021-06-27] MEDS ORDERED: POTASSIUM PHOS 20 MM in NA CHLORIDE 0.9% 500 ML IV ONE (12:31)
[2021-06-27] MEDS ORDERED: FUROSEMIDE 40 MG/4 ML VIAL IV ONE (12:34)
--- NOTE | 2021-06-27 14:12 | RAD REPORT ---
EXAM DESCRIPTION: RAD - Chest Single View - 06/27/2021 1:52 pm CLINICAL HISTORY: sob COMPARISON: June 24 portable chest, June 25 CT chest TECHNIQUE: AP portable chest image was obtained 06/27/2021 1:52 pm . FINDINGS: Chronic interstitial lung disease is present. Findings remain prominent at each lung base. Calcified lung base nodule heart size is mildly enlarged. Pacemaker leads are in place. Upper lobe v asculature is within limits of normal. No measurable pleural effusion and no pneumothorax. No acute b delvin abnormality seen. No acute aortic findings suspected. IMPRESSION: No new or progressive cardiopulmonary finding. Mild CHF findings seen on the prior study show slight improvement.
--- NOTE | 2021-06-27 15:26 | PN ---
Date of Progress Note: 06/25/2021 Subjective: The patient is still markedly confused. However, her chemistries have improved somewhat on a combination of oral intake of calcium and vitamin D, and the use of the diuresis. Once she is stabilized, it feels she needs to be staying with family or some type of supervision as there is some question as well as the medication control. HR/MODL Voice ID: [id number] Report ID: [id number]
--- NOTE | 2021-06-27 15:41 | PN ---
Date of Progress Note: 06/26/2021 Subjective: The patient seems somewhat better today, both mentally and physically. However, she sti ll has episodes of confusion. The chemistries are much more stable. under control. Neph rology continues to modify her medication. Once this is stabilized in the next day or so, she should be able to be discharged. However, discussed with her family that she needs to be with somebody up t o six weeks. HR/MODL Voice ID: [id number] Report ID: [id number]
--- NOTE | 2021-06-27 18:16 | PN ---
Date of Progress Note: 06/27/2021 Subjective: The patient was admitted with symptomatic hypercalcemia secondary to milk alkali/vitamin-D intoxication. The patient after hydration, kidney function has been back to baseline. Calcium went down. Physical Examination: Vital Signs: Blood pressure 139/64, pulse of 70, afebrile. Chest: Clear to auscultation. Heart: S1, S2. Regular. Abdomen: Soft, nontender. Extremities: No edema. Neurologic: Alert, no focality. No tremor. Laboratory Data: WBC 6.7, H and H 10.3/31.4, platelet 165. Sodium 145, potassium 4, bicarb 27, BUN 34, creatinine down to 1.1, GFR of 43, calcium 9.9, albumin 2.7, corrected calcium 10.6, phosphorus 1.7, magnesium 2.1. Total vitamin D 87. Current Medications: The patient on include: 1. Ceftriaxone. 2. Tylenol. 3. IV fluid at 50 per hour. 4. Zofran. 5. Magnesium oxide. Assessment And Plan: 1. Acute kidney injury secondary to prerenal, secondary to calcium diuresis, recovered, resolved back to baseline, looked to me normal volume to the wet side. I am going to go ahead and discontinue IV fluid and we will monitor the patient. I am going to go ahead and get chest x-ray for better evaluation of the fluid status of the patient and we will follow up. 2. Hypertension, controlled, optimal. Continue current medications. Keep holding diuresis for the time being. 3. Shortness of breath. The patient's CT is showing questionable emphysematous change. No fluid overload picture. Currently, I am going to repeat chest x-ray for better evaluation of the fluid status and I will get uric acid and we will follow up the patient. If chest x-ray is still not showing any fluid, the patient is going to need Pulmonary evaluation for the emphysema and we will follow up. Otherwise, we may resume diuresis, but we are not going to resume metolazone, neither any calcium or vitamin D supplement. 4. Milk alkali syndrome with hypercalcemia. Waiting for vitamin D level, recovering nicely. Follow up serum protein electrophoresis and we will follow up. 5. Hypercalcemia secondary to milk alkali as above. Discontinue IV fluid. We will follow up vitamin D level. I am going to give single dose of Lasix today for establishing more calcium diuresis and we will follow up the patient. Please avoid any metolazone or any vitamin D or calcium supplement. 6. Hypomagnesemia status post supplement. 7. Hypokalemia, hypophosphatemia. We will supplement. 8. Alkalosis secondary to contraction, recovering. time spend exam the patient face to face placing order , reviewing lab and radiology data , discussing the case with the nursing staff and other steam pan sponger including hospitalist and other sustainable design consultant on the case 35 min ARNOLDO Voice ID: [id number] Report ID: [id number] ZHANG
[2021-06-27] MEDS: ACETAMINOPHEN 500 MG TAB PO PRN (22:02)
[2021-06-28 05:43] LABS: Absolute Lymphocytes (CBC) 1.5 K/uL (0.7-4.9); Basophils % 0.6 % (0-1.3); Hematocrit 30.9 % (36.0-45.0); Lymphocytes % 22.1 % (15.3-44.8); RBC Red Blood Cell Count 3.23 M/uL (3.86-4.86)
[2021-06-28 05:58] LABS: Albumin 2.8 g/dL (3.4-5.0); Bilirubin Total 0.7 mg/dL (0.2-1.0); Magnesium 1.8 mg/dL (1.8-2.4); Phosphorus 1.7 mg/dL (2.5-4.9); Potassium 3.8 mmol/L (3.5-5.1); Protein, Total 6.2 g/dL (6.4-8.2)
--- NOTE | 2021-06-28 06:21 | P.PN ---
Subjective Date of Service: 06/28/21 Subjective: No C/O voiced Physical Examination - Vital Signs Temperature: 99.7 F Blood Pressure: 150/67 Pulse: 70 Respirations: 19 Pulse Ox (%): 97 - Physical Exam General: Other (Appears as her stated age) HEENT: Atraumatic, Normocephalic Neck: Supple, JVD not distended Respiratory: Other (Symmetric chest expansion) Cardiovascular: No rubs, No murmurs Gastrointestinal: Soft and benign, Non-distended Musculoskeletal: No clubbing Integumentary: No warmth Neurological: Normal speech, Normal tone Lymphatics: No axilla or inguinal lymphadenopathy Urinary: Other (No bladder distention) External genitalia: Deferred Rectal: Deferred Assessment And Plan - Plan 1. Acute kidney injury secondary to prerenal, secondary to calcium diuresis, recovered, resolved back to baseline. SCr improved to 1.2-1.3. [place] po fluid intake. Monitor renal panel. 2. Hypertension. BP increasing. Start low dose lisinopril 5 mg po daily. 3. Acute respiratory failure. Congestion improved. No need to resume diuretics today. Low Na diet. 4. Milk alkali syndrome with hypercalcemia. Hypercalcemia resolved. PTH low. 25OHD high. Monitor. [place] po fluid intake. 5. Hypomagnesemia. Improved. Monitor/replete prn. 6. Hypernatremia. Improved. [place] po fluid intake. 7. Alkalosis. Improved. [place] po fluid intake. 8. Dispo. [place] plan to rehab facility ongoing.
[2021-06-28] MEDS: CEFTRIAXONE 1 GM/NS 50 ML 1 GM/50 ML BAG IV SCH (07:59)
[2021-06-28] MEDS: HEPARIN 5000 UNIT/ML 1 ML VIAL SQ SCH ×2 (07:59→20:10)
[2021-06-28] MEDS ORDERED: MAGNESIUM SULFATE 1 gm IVPB 1 GM/100 ML BAG IV ONE (09:00)
[2021-06-28] MEDS ORDERED: POTASSIUM CL SA 10 MEQ TAB PO ONE (09:00)
[2021-06-28] MEDS: POTASS/SODIUM PHOSPHATE 1 PKT POWD.PACK PO SCH ×3 (09:29→11:52)
[2021-06-28 11:31] LABS: Urine Appearance CLEAR (Clear); Urine Bilirubin NEGATIVE (Negative); Urine Blood NEGATIVE (Negative); Urine Color YELLOW (Yellow); Urine Glucose NEGATIVE (Negative); Urine Protein TRACE (Negative); Urine Urobilinogen 0.2 mg/dL (0.2-1.0)
[2021-06-28] MEDS ORDERED: POTASS/SODIUM PHOSPHATE 1 PKT POWD.PACK PO ONE (12:00)
[2021-06-28 12:12] LABS: Urine Bacteria <20 /HPF (<20); Urine RBC NONE SEEN /HPF (NONE SEEN)
--- NOTE | 2021-06-28 14:03 | PN ---
Date of Progress Note: 06/27/2021 Subjective: The patient seems much more alert today. Chemistries are significantly improving. Disc ussion was held with Cardiology and Nephrology in regard to the use of diuresis and told to use judic iously obviously in view of these findings. Discussion with the family was also held for placement o f the patient when she is ready for discharge, which should be in the next day or so. HR/MODL Voice ID: [id number] Report ID: [id number]
[2021-06-28] MEDS: lisinopriL 5 MG TAB PO SCH (17:27)
[2021-06-29 06:21] LABS: Albumin 2.8 g/dL (3.4-5.0); Phosphorus 1.8 mg/dL (2.5-4.9); Potassium 3.9 mmol/L (3.5-5.1)
[2021-06-29] MEDS: CEFTRIAXONE 1 GM/NS 50 ML 1 GM/50 ML BAG IV SCH (08:09)
[2021-06-29] MEDS: lisinopriL 5 MG TAB PO SCH (08:10)
[2021-06-29] MEDS: POTASS/SODIUM PHOSPHATE 1 PKT POWD.PACK PO SCH ×3 (08:11→12:00)
[2021-06-29] MEDS: HEPARIN 5000 UNIT/ML 1 ML VIAL SQ SCH ×2 (08:11→20:21)
[2021-06-29] MEDS ORDERED: POTASSIUM CL SA 10 MEQ TAB PO ONE (09:00)
--- NOTE | 2021-06-29 11:33 | PN ---
Date of Progress Note: 06/29/2021 Nephrology Followup Subjective: The patient was admitted with symptomatic hypercalcemia secondary to milk alkali syndrome. The patient after holding vitamin D, holding calcium supplement and hydration, kidney function has been improved. Calcium normalized. The patient is feeling better, but the patient is still insisting that she is retaining fluid. Reviewing the weight for the patient, the patient gained almost 15 pounds by admission. Dry mouth has been improved. The patient yes, still has shortness of breath. Physical Examination: Vital Signs: Blood pressure 122/53, pulse of 70, afebrile. Chest: Faint rales. Heart: S1, S2, systolic murmur. Abdomen: Soft, nontender. Extremities: No edema. Neurological: Alert, oriented x3. No focal. No tremor. Lab Data: H and H of 10.1/30.9, sodium 139, potassium is 3.9, bicarb 25, BUN is 23, creatinine 1.1, GFR of 45, calcium 9, phosphorus 1.8, magnesium 2.3, albumin 2.8. Corrected calcium 9.8. Current Medications: The patient on include: 1. Ceftriaxone. 2. Lisinopril 5 mg. 3. Zofran. 4. Magnesium oxide. 5. Potassium phosphate. Assessment And Plan: 1. Acute kidney injury secondary to prerenal, secondary to over diuresis. Normal size kidney, proteinuric, non-nephrotic. Recovered back to baseline. Looked to me normal volume. I had long discussion with the patient that no need for diuresis, only as needed. The patient is still insisting that she gained fluid. Explained to the patient that when she arrived, she was on the dry side, so she back to normal volume, not gaining. Yes the gain in weight, it was as a fluid gain but that took back her to the normal volume side from dehydration status. The patient is needing to be started on diuresis. Okay to start low dose of Lasix 20 mg as needed. 2. Hypertension, controlled, optimal. Continue current treatment. Continue lisinopril. 3. Hypercalcemia secondary to milk alkali syndrome, supportive with suppress PTH. Serum protein electrophoresis is still pending and vitamin D is still pending, but total vitamin D was elevated. Keep holding on any vitamin D or calcium supplement. Discontinue any IV fluid for the time being as the patient back to normal volume. 4. Hypokalemia, hypophosphatemia, hypomagnesemia. We will supplement. 5. Urinary tract infection. Continue ceftriaxone. 6. Altered mental status secondary to hypercalcemia, resolved. 7. Shortness of breath. CT showing interstitial infiltration with emphysematous change. 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 Consider Pulmonary evaluation. The patient was seen by Dr. Auguste, a few years back. time spend exam the patient face to face placing order , reviewing lab and radiology data , discussing the case with the nursing staff and other steam turbine operator including hospitalist and other development consultant on the case 35 min ARNOLDO Voice ID: [id number] Report ID: [id number] ZHANG
[2021-06-29] MEDS ORDERED: PNEUMOCOCCAL VACCINE 0.5 ML IMVAC ONE (13:00)
[2021-06-29 16:16] LABS: Vitamin D 1,25-Dihydroxy Total 9 pg/mL (18-72); Vitamin D,1,25-OH2, D2 <8 pg/mL
--- NOTE | 2021-06-29 16:33 | PN ---
Date of Progress Note: 06/28/2021 Subjective: The patient feels somewhat better today. She has been mobilized, still complains of sig nificant dyspnea. However, chest x-ray shows no fluid, but underlying interstitial disease. She has seen Dr. Zamora in the past. We will consult him before deciding on her disposition. Physical th erapy consult has been obtained as well in regard to her disposition status. Her bladder is much bet ter. Discussion with Nephrology and Cardiology to decide on a very stable Lasix dose of 20 mg. HR/MODL Voice ID: [id number] Report ID: [id number]
--- OUTSIDE RECORDS SUMMARY | 2021-06-29 16:34 | XMS REPORT | Continuity of Care Document ---
:1935 Author Organization [facility] t Address [address] [place] [address] Care Team Providers Name Role Phone Kavya Primary Care Physician Yung Main RN Attending Clinician Unavailable Only, Db Test Attending Clinician Unavailable Heron REAL ESTATE CLERK Attending Clinician Doctor Unassigned, Name Attending Clinician Unavailable Mark Issa Attending Clinician Unavailable Payers Payer Name Policy Policy Number Effective Expiration Source Type Date Date MEDICAREMEDICARE [id number] 2002 Universi of PART A & 00:00:00 [facility] [id number]/2002 [phone] [address] [address]Medicare [facility] [id number] 2006 [place] o f HEALTHCAREUNITED 00:00:00 [place] Me dical HEALTHCARE MEDICARE Branc h [id number] 2006-Present[address] [address], [place] [address]Medicare Supplement Problems This patient has no known problems. Allergies, Adverse Reactions, Alerts Allergy Allergy Status Severity Reaction(s) Onset Inactive Treating Comm ents Source Name Type Date Date Clinician Penicill DA Active SV 2020-0 [facility] ins 08-29 [place] 00:00: [facility] 00 are [place] Penicill DA Active SV HIVES 2020-0 [facility] ins 08-29 [place] 00:00: Health 00 are [place] Penicill Propensi Active Hives Univer s ins ty to 6-16 ity of adverse 00:00: [place] reaction 00 Medical s to Branch drug Social History Social Habit Start Date Stop Date Quantity Comments Source Exposure to Not sure [facility] SARS-CoV-2 [facility] (event) Branch Tobacco use and 2015-02-05 2015-02-05 Never used Universit y of exposure 00:00:00 00:00:00 [facility] Alcohol intake 2015-02-05 2015-02-05 Current University 00:00:00 00:00:00 non-drinker of [facility] [place] alcohol [place] (finding) Sex Ass[birth year] At [birth year] Universit y of 00:00:00 00:00:00 [facility] Smoking Status Start Date Stop Date Source Never smoker [facility] Medications Ordered Filled Start Stop Current Ordering Indication Dosage Frequency Signature Comments Components Source Medication Medication Date Date Medication? Clinician (SIG) Name Name No known No Univers medications [facility] No known No Univers medications [facility] No known No Univers medications [facility] Procedures Procedure Date / Time Performed Performing Clinician [facility] e ASSIGNMENT OF BENEFITS 2021-04-12 18:38:43 Doctor Unassigned, No [facility] Encounters Start End Encounter Admission Attending Care Care Encounter Source Date/Time Date/Time Type Type Clinicians Facility Department ID 2021-04-14 2021-04-14 Telephone GEOVANI Main [id number] Univers 00:00:00 00:00:00 Isabel CYR [id number] i ty of [facility] [id number] Connor as [id number] [facility] 019 Branch 2021-04-12 2021-04-12 Laboratory Only, Ang Db Test [facility] 1.2.8 40.114 [id number] Univers 13:38:59 13:48:59 Only Heron Carol [facility] [id number] ity of [place] [id number] Connor as Ish?Blea [id number] Dc dical [address] Medical Office Building 2021-04-12 2021-04-12 Orders Doctor OLIVO [id number] 00:00:00 00:00:00 Only Unassigned, GER [id number] ity of [place] [facility] [id number] Connor as [id number] [facility] 009 Branch 2019-09-02 2019-09-02 Outpatient Luis Manuel, ARMINDANC CATH [id number] 020 [facility] 07:30:00 07:30:00 Nadim 0117 [facility] are [facility] Results Test Description Test Time Test Comments [...] code = CA) 9.4 mg/dL 8.5-10.1 N [id number] 07:02:00 Test Item Value Reference Range Interpretation Comments MAGNESIUM (test code = MAG) 2.1 mg/dL 1.8-2.4 N THROMBOPLASTIN TIME [id number] 06:55:00 Test Item Value Reference Range Interpretation Comments THROMBOPLASTIN TIME PARTIAL 32.3 SECONDS 25.1-36.5 N (test code = PTT) PROTHROMBIN [id number] 06:55:00 Test Item Value Reference Range Interpretation [...] t values and/or recurren t systemicemboliz ation. CBC W/AUTO [id number] 06:40:00 Test Item Value Reference Range Interpretation [...]
--- NOTE | 2021-06-29 18:10 | CON ---
Date of Consultation: 06/28/[address] Hoff's service on 06/24/2021. I saw her on 06/28/2021. Reason For Consultation: Hypercalcemia and history of diastolic congestive heart failure. History Of Present Illness: Ms. Camp is 86. She is known to me from previous office visits and admi ssion, was admitted with nonspecific symptoms to the emergency room on 06/24/2021 and was found to aquino ve a very elevated calcium of 14. She has had a history of pacemaker, hypertension, atrial fibrillat ion, and gout. She has chronic diastolic congestive heart failure and some lymphedema for which she was taking spironolactone, Lasix, and metolazone. She comes with hypercalcemia. Never really had an y chest pain, syncope, nausea, vomiting, diaphoresis, PND, orthopnea, pedal edema, or palpitation. Past Medical History: As stated above. Allergies: SHE IS ALLERGIC TO PENICILLIN. Review of Systems: Negative. Social History: Negative. Family History: Noncontributory. Medications: At home include allopurinol, calcium, vitamin D, Lasix, Synthroid, metolazone, metoprol ol, potassium, Pravachol, and Xarelto. Physical Examination: Vital Signs: Stable. Blood pressure 168/60. She was in a paced rhythm, asymptomatic, actually feel ing better after her electrolytes were corrected. HEENT: Negative. Neck: Supple with no bruit. Chest: Clear. Cardiac: Revealed a paced rhythm. No murmurs, gallops, or rubs. Abdomen: Benign. Extremities: Revealed no clubbing, cyanosis. She has chronic lymphedema. Laboratory Data: Creatinine is 1.25. Her hemoglobin 10.1. The last calcium was 9.[address] Hoff and by Nephrology. Impression And Plan: Hypercalcemia may have been due to some of her medication. She was taking doris min D and calcium at home. I would definitely stay on the Lasix at home and metolazone as needed. A void spironolactone. Avoid hydrochlorothiazide. Continue her other regimen. Her hypertension, pace maker, gout, atrial fibrillation, and chronic diastolic congestive heart failure are stable at this p oint. I have no further recommendation at this point, and so did not recommend any further cardiac w orkup. I will see her in the office as an outpatient. Nephrology is following along with Dr. Hermelinda GODFREY/TRISTEN Voice ID: [id number] Report ID: [id number]
[2021-06-29] MEDS: SMZ./TMP. 800/160 MG TABLET PO SCH (20:21)
[2021-06-29] MEDS: ACETAMINOPHEN 500 MG TAB PO PRN (23:42)
[2021-06-30 05:45] LABS: Albumin 2.5 g/dL (3.4-5.0); Phosphorus 2.1 mg/dL (2.5-4.9); Potassium 4.2 mmol/L (3.5-5.1)
[2021-06-30 06:41] LABS: Albumin, (SPE) 3.5 g/dL (3.8-4.8); Alpha-1-Globulins 0.2 g/dL (0.2-0.3); Alpha-2-Globulins 0.7 g/dL (0.5-0.9); Gamma Globulins 0.9 g/dL (0.8-1.7); INTERPRETATION REPORT
[2021-06-30] MEDS: SMZ./TMP. 800/160 MG TABLET PO SCH ×2 (10:35→20:54)
[2021-06-30] MEDS: HEPARIN 5000 UNIT/ML 1 ML VIAL SQ SCH ×2 (10:36→20:47)
[2021-06-30] MEDS: POTASS/SODIUM PHOSPHATE 1 PKT POWD.PACK PO SCH ×5 (10:36→13:37)
[2021-06-30] MEDS: lisinopriL 5 MG TAB PO SCH (10:36)
--- NOTE | 2021-06-30 12:48 | PN ---
Date of Progress Note: 06/30/2021 Subjective: The patient was admitted with hypercalcemia secondary to dehydration secondary to milk alkaline. The patient with altered mental status. The patient after holding the vitamin D and the diuresis and hydration, calcium normalized. The patient feeling better, but is still complaining from shortness of breath. Physical Examination: Vital Signs: Blood pressure 124/60, pulse of 62, afebrile. Chest: Clear to auscultation. Heart: S1, S2. Regular. Abdomen: Soft, nontender. Extremity: Trace edema. Neurologic: Alert. No focality. Laboratory Data: WBC 6.8, H and H 10.1/30.9. Sodium 140, potassium 4.2, bicarb 25, BUN 19, creatinine 1, GFR of 48, calcium 8.3, albumin 2.5, corrected calcium is 9.5, phosphorus 2.1, magnesium 2.1. Current Medications: The patient on include Bactrim, heparin, lisinopril 5, KCl. Assessment And Plan: 1. Acute kidney injury secondary to prerenal, recovered, back to baseline. 2. 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 Light chain disease has been ruled out. We will continue to monitor. Lab did show that her vitamin D on the lower side with presence of milk alkali syndrome. I am going to hold on any supplement for the time being. 3. 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 Hold vitamin D supplement currently. 4. Congestive heart failure, diastolic dysfunction, was evaluated by Cardiology. Recommended to resume Lasix and metolazone. We are going to go ahead and resume only Lasix for the time being. We will monitor the patient as outpatient. Please avoid any spironolactone and metolazone for the time being. 5. Shortness of breath, multifactorial, secondary to diastolic dysfunction, questionable of emphysema, confirmed with CT. Awaiting for Pulmonary eval. 6. Hypertension, controlled, optimal. Add Lasix. 7. Hypokalemia, hypomagnesemia, resolved. time spend exam the patient face to face placing order , reviewing lab and radiology data , discussing the case with the nursing staff and other long line teamster including hospitalist and other senior wind energy consultant on the case 35 min PAT/TRISTEN Voice ID: [id number] Report ID: [id number] MTDD
[2021-06-30] MEDS: FUROSEMIDE 20 MG TABLET PO SCH (15:02)
--- NOTE | 2021-06-30 16:31 | PN ---
Date of Progress Note: 06/29/2021 The patient states she feels somewhat better today. Her electrolytes and calcium are back to within normal range. Still having bladder issues or symptoms of concern. Does have a positive UA. We will therefore discontinue her Rocephin and start her on Bactrim. A renal bladder scan showed minimal re tention. Her hep C has some prolapse issues which need to be addressed after this is completed. The other issues for recommended SNF; however, after discussion, the possibility of rehab adm ission will be considered, very beneficial to see if this is a possibility. HR/MODL Voice ID: [id number] Report ID: [id number]
--- NOTE | 2021-06-30 16:36 | PN ---
Date of Progress Note: 06/30/2021 The patient is seen stable in regard to her chemistries; however, she did have an episode of dyspnea last night which she fell is somewhat similar to the one she has had at home, which I think now is pr obably due to her underlying chest congestion. The significant other problems is her bladder. She s tates without the Lasix, she cannot urinate; however, this morning, she urinated 3 times total of 100 0 and states she cannot urinate this afternoon. We will repeat a bladder scan, add Lasix and see if she has dysfunctional bladder or there is a urinary retention. Her culture was negative and we will see as far as her disposition is concerned with rehab tomorrow. HR/MODL Voice ID: [id number] Report ID: [id number]
[2021-06-30 18:16] LABS: Albumin, (SPE) 2.9 g/dL (3.8-4.8); Alpha-1-Globulins 0.2 g/dL (0.2-0.3); Alpha-2-Globulins 0.5 g/dL (0.5-0.9); Gamma Globulins 0.7 g/dL (0.8-1.7); INTERPRETATION REPORT
[2021-06-30] MEDS: ACETAMINOPHEN 500 MG TAB PO PRN (22:02)
[2021-07-01] MEDS: LORAZEPAM 1 MG TABLET PO PRN ×2 (01:35→20:37)
[2021-07-01 04:15] LABS: Phosphorus 2.5 mg/dL (2.5-4.9); Potassium 4.1 mmol/L (3.5-5.1)
[2021-07-01] MEDS: SMZ./TMP. 800/160 MG TABLET PO SCH ×2 (08:51→20:37)
[2021-07-01] MEDS: HEPARIN 5000 UNIT/ML 1 ML VIAL SQ SCH ×2 (08:51→20:37)
[2021-07-01] MEDS: POTASS/SODIUM PHOSPHATE 1 PKT POWD.PACK PO SCH ×2 (08:51→08:57)
[2021-07-01] MEDS: lisinopriL 5 MG TAB PO SCH (08:52)
[2021-07-01] MEDS: FUROSEMIDE 20 MG TABLET PO SCH (08:52)
--- NOTE | 2021-07-01 20:43 | PN ---
Date of Progress Note: 06/30/2021 The patient states she feels about the same. She is still markedly dyspneic with minimal amount of e xertion. Still complains of difficulty emptying her bladder without the Lasix, which was added to th e regimen. However, prior to it, bladder scan was done, which showed a minimal residual so feels ty dder dysfunction rather than a urinary tract problem. Following her discharge she referred for cysto scopy possible with some urethral issue as well. HR/MODL Voice ID: [id number] Report ID: [id number]
--- NOTE | 2021-07-01 20:52 | PN ---
Date of Progress Note: 07/01/2021 The patient states she feels stronger within the last few days; however, she still has exertional dys pnea and could not tolerate 3 hours of rehab. The SNF consultation was placed and she is comfortable with this. HR/MODL Voice ID: [id number] Report ID: [id number]
--- NOTE | 2021-07-02 04:08 | PN ---
Date of Progress Note: 07/01/2021 Chief Complaint: Hypercalcemia, volume depletion History Of Present Illness: The patient was found to have hypercalcemia and responded to IV fluids. She received IV hydration. Subsequently, she developed some myxedema. She is complaining of shortn ess of breath with activities. Review of Systems: Denies fever or chills. Physical Examination: Lungs: Clear to auscultation bilaterally. Heart: S1, S2. Abdomen: Soft, benign. Extremities: Slight edema in both ankles. Laboratory Data: BUN 19, creatinine 1, calcium 9.3, albumin 2.5, corrected calcium 9.5, phosphorus 2 .1 and magnesium 2.1. Impression And Plan: 1.Acute kidney injury secondary to prerenal azotemia. Renal function has improved in response to IV fluids. 2.The patient developed some fluid overload. Continue Lasix as needed. Monitor fluid balance. 3.Hypercalcemia secondary to volume contraction. The patient was found to have some milk-alkali syn drome over diuresis and volume contraction with volume depletion. The patient will avoid excessive calcium intake. 4.Congestive heart failure, diastolic dysfunction. Continue Lasix. Monitor urine output. 5.Short of breath, multiple edema. The patient is awaiting CT scan and evaluation by Naman montenegro. 6.Hypertension, controlled. The patient is on Lasix for volume control and congestive heart failure treatment. EB/MODL Voice ID: [id number] Report ID: [id number]
[2021-07-02] MEDS: lisinopriL 5 MG TAB PO SCH (09:05)
[2021-07-02] MEDS: SMZ./TMP. 800/160 MG TABLET PO SCH ×2 (09:05→20:19)
[2021-07-02] MEDS: FUROSEMIDE 20 MG TABLET PO SCH (09:06)
[2021-07-02] MEDS: HEPARIN 5000 UNIT/ML 1 ML VIAL SQ SCH ×2 (09:06→20:19)
--- NOTE | 2021-07-02 14:12 | P.PN ---
Subjective Date of Service: 07/02/21 Subjective: Other (No urinary complaints. No c/o nausea/vomiting.) Physical Examination - Vital Signs Temperature: 97.9 F Blood Pressure: 151/68 Pulse: 70 Respirations: 18 Pulse Ox (%): 99 - Physical Exam General: Other (Frail looking) HEENT: Atraumatic, Normocephalic Neck: Supple, JVD not distended Respiratory: Other (Symmetric chest expansion) Cardiovascular: No rubs, No murmurs Gastrointestinal: Soft and benign, Non-distended Musculoskeletal: No clubbing Integumentary: Other (Normal temp) Neurological: Normal speech, Normal tone Urinary: Other (No bladder distention) Assessment And Plan - Plan # CURT 2/2 prerenal state Improved SCr improved to 1.1-1.3 [place] po fluid intake Monitor renal panel # Htn Continue Lisinopril 5 mg po daily # CHF Cont lasix at 20 mg po bid Do NOT restrict po fluid intake to avoid CURT # Hypercalcemia 2/2 volume depletion + milk-alkali syndrome Resolved, monitor # Dispo Dc plan to SNF ongoing
--- NOTE | 2021-07-02 15:44 | PN ---
Date of Progress Note: 07/02/2021 Basically, the patient is mobilized more, feels somewhat better. Calcium level is now low. I feel _ probably restarted by end of the week. Awaiting insurance clearance for a SNF. HR/MODL Voice ID: [id number] Report ID: [id number]
[2021-07-02] MEDS: LORAZEPAM 1 MG TABLET PO PRN (22:53)
[2021-07-03 01:15] VITALS: O2SAT 95
[2021-07-03 04:15] LABS: Albumin 2.6 g/dL (3.4-5.0); Magnesium 2.4 mg/dL (1.8-2.4); Potassium 4.6 mmol/L (3.5-5.1)
[2021-07-03] MEDS: lisinopriL 5 MG TAB PO SCH (08:37)
[2021-07-03] MEDS: SMZ./TMP. 800/160 MG TABLET PO SCH ×2 (08:37→20:34)
[2021-07-03] MEDS: HEPARIN 5000 UNIT/ML 1 ML VIAL SQ SCH ×2 (08:38→20:35)
[2021-07-03] MEDS: FUROSEMIDE 20 MG TABLET PO SCH ×2 (08:38→20:31)
--- NOTE | 2021-07-03 14:55 | P.PN ---
Subjective Date of Service: 07/03/21 Subjective: Working w/ PT Physical Examination - Vital Signs Temperature: 97.7 F Blood Pressure: 110/46 Pulse: 71 Respirations: 14 Pulse Ox (%): 97 - Physical Exam General: In no apparent distress HEENT: Atraumatic, Normocephalic Neck: Supple, JVD not distended Respiratory: Other (Symmetric chest expansion) Gastrointestinal: Soft and benign, Non-distended Musculoskeletal: No clubbing Integumentary: No warmth Neurological: Normal speech, Normal tone Lymphatics: No axilla or inguinal lymphadenopathy Urinary: Other (No bladder distention) External genitalia: Deferred Rectal: Deferred Assessment And Plan - Plan # CURT 2/2 prerenal state SCr improved but now uptrending again NS IV gtt 1L ordreed [place] po fluid intake Monitor renal panel # Htn Continue Lisinopril 5 mg po daily # CHF Cont lasix at 20 mg po bid Low Na diet Do NOT restrict po fluid intake to avoid CURT # Hypercalcemia 2/2 volume depletion + milk-alkali syndrome Resolved, monitor # HypoPO4 Phos po repletion today # Dispo Dc plan to SNF tomorrow
[2021-07-03] MEDS ORDERED: POTASS/SODIUM PHOSPHATE 1 PKT POWD.PACK PO ONE (15:30)
[2021-07-03] MEDS ORDERED: NA CHLORIDE 0.9% 1,000 ML IV SCH (16:00)
--- NOTE | 2021-07-03 21:54 | PN ---
Date of Progress Note: 07/03/2021 The patient states she feels a little bit weaker today. In fact, this may correlate with her slight increase in her renal function. Nephrology felt it would be better to hydrate her for 1 more day peter or to being transferred to the SNF before she had been accepted. This will be done. Blood work will be repeated and then decision will be made in the a.m. HR/MODL Voice ID: [id number] Report ID: [id number]
[2021-07-03] MEDS: LORAZEPAM 1 MG TABLET PO PRN (23:12)
[2021-07-04 04:44] LABS: Albumin 2.9 g/dL (3.4-5.0); Magnesium 2.1 mg/dL (1.8-2.4); Phosphorus 1.8 mg/dL (2.5-4.9); Potassium 4.4 mmol/L (3.5-5.1)
[2021-07-04] MEDS: SMZ./TMP. 800/160 MG TABLET PO SCH (07:44)
[2021-07-04] MEDS: lisinopriL 5 MG TAB PO SCH (07:44)
[2021-07-04] MEDS: HEPARIN 5000 UNIT/ML 1 ML VIAL SQ SCH (07:45)
[2021-07-04] MEDS: FUROSEMIDE 20 MG TABLET PO SCH (07:45)
[2021-07-04] MEDS: POTASS/SODIUM PHOSPHATE 1 PKT POWD.PACK PO SCH ×3 (07:45→11:30)
[2021-07-04] MEDS ORDERED: POTASSIUM PHOS IN 0.9 % NACL 15 MMOL/250 ML BAG IV ONE (10:51)
--- NOTE | 2021-07-04 11:10 | PN ---
Date of Progress Note: 07/04/2021 Subjective: The patient was admitted to the hospital for hypercalcemia, symptomatic. Physical Examination: Vital Signs: When I saw the patient; blood pressure 144/67, pulse of 70, afebrile. Chest: Clear to auscultation. Heart: S1, S2. Regular. Abdomen: Soft, nontender, Extremities: No edema. Neuro: Alert, oriented. No focal. Laboratory Data: WBC 6.8, H and H 10.1/30.9. Sodium 140, potassium 4.4, bicarb 22, BUN 17, creatinine 1.3, calcium 8.5, phosphorus 1.8, magnesium 2.1. Current Medications: The patient on include; 1. Bactrim. 2. Heparin. 3. Lisinopril. 4. Lasix. Assessment And Plan: 1. Acute kidney injury secondary to prerenal, originally secondary to calcium diuresis, superimposed with Lasix use. Currently, it is again secondary to over diuresis, superimposed with Bactrim use. The patient today is better, still feeling tired. The patient was increased on her Lasix yesterday. I am going to go ahead and discontinue IV fluid, decrease Lasix to daily. I have long discussion with the patient in the presence of the son and [id number] the need for fluid restriction and decrease the Lasix, the need to be evaluated by Pulmonary. The patient verbalized understanding. The patient cleared from the Renal standpoint for discharge to the rehab to follow up in 2-3 weeks. 2. Hypercalcemia secondary to milk alkaline, recovered, resolved. 3. Vitamin D deficiency with the presence of the hypercalcemia with intoxication. I am going to avoid replacement right now. 4. Hypophosphatemia. We will supplement. 5. Shortness of breath, multifactorial secondary to diastolic congestive heart failure and interstitial lung disease. The patient advised by Cardiology to be on diuresis. We will continue Lasix 20 mg daily. Please avoid using any hydrochlorothiazide or metolazone. 6. The patient is going to need Pulmonary evaluation. time spend exam the patient face to face placing order , reviewing lab and radiology data , discussing the case with the nursing staff and other steam table attendant including hospitalist and other railroad design consultant on the case 35 min ARNOLDO Voice ID: [id number] Report ID: [id number] MTDD
[2021-07-04 13:11] VITALS: BP 140/64; TEMP 98.5
--- NOTE | 2021-07-04 20:22 | PN ---
Date of Progress Note: 07/04/2021 The patient states she feels much better than yesterday. This may correspond with her blood chemistr ies, which are much better. She is accepted at the SNF unit and she will be transferred and discharg ed later today to continue on the same medication to follow up in a couple weeks depending on the [facility] of stay for her rehab with myself and Dr. Barahona. HR/MODL Voice ID: [id number] Report ID: [id number]
[2021-07-05] MEDS ORDERED: FUROSEMIDE 20 MG TABLET PO SCH (09:00)
== END 2021-07-04 15:27 | DRG 682 ==
LOC: ER 15:52 → ERHOLD 17:54 → 2ND 21:45
PROVIDERS: ADMIT Family Medicine; ATTEND Family Medicine
DX: N17.9 Acute kidney failure, unspecified (principal); J96.00 Acute respiratory failure, unspecified whether with hypoxia or hypercapnia; I13.0 Hypertensive heart and chronic kidney disease with heart failure and stage 1 through stage 4 chronic kidney disease, or unspecified chronic kidney disease; I50.32 Chronic diastolic (congestive) heart failure; J84.9 Interstitial pulmonary disease, unspecified; N39.0 Urinary tract infection, site not specified; E87.3 Alkalosis; N18.30 Chronic kidney disease, stage 3 unspecified; E83.52 Hypercalcemia; E83.39 Other disorders of phosphorus metabolism; E03.9 Hypothyroidism, unspecified; E87.6 Hypokalemia; E83.42 Hypomagnesemia; I48.91 Unspecified atrial fibrillation; M10.9 Gout, unspecified; J43.9 Emphysema, unspecified; E86.0 Dehydration; Z95.0 Presence of cardiac pacemaker; Z88.0 Allergy status to penicillin; Z20.822 Contact with and (suspected) exposure to COVID-19
CPT/HCPCS: 36415; 70450; 71045; 71250; 72100; 76770; 80048; 80053; 80061; 80069; 80076; 81001; 81003; 81015; 82306; 82570; 82607; 82652; 82728; 82746; 83540; 83735; 83880; 83970; 84100; 84132; 84156; 84165; 84439; 84443; 84466; 84484; 84550; 85025; 85044; 85610; 87086; 87088; 93005; 97116; 97161; 97530; 99285; J0696; J1644; J1940; J3475; J7030; J7040; U0003

== ENCOUNTER 2021-08-06 12:37 | Inpatient (IN) | payer OTHER ==
--- OUTSIDE RECORDS SUMMARY | 2021-08-06 12:40 | XMS REPORT | Continuity of Care Document ---
:1935 Author Organization [facility] t Address [address] [place] [address] Care Team Providers Name Role Phone Kavya Primary Care Physician Yung Main RN Attending Clinician Unavailable Only, Db Test Attending Clinician Unavailable Heron PHOTOGRAPHY AND PRINTS CURATOR Attending Clinician Doctor Unassigned, Name Attending Clinician Unavailable Mark Issa Attending Clinician Unavailable Payers Payer Name Policy Policy Number Effective Expiration Source Type Date Date MEDICAREMEDICARE [id number] 2002 Universi ty of PART A & 00:00:00 [facility] [id number] [phone] [address] [address]Medicare [facility] [id number] 2006 [place] o f HEALTHCAREUNITED 00:00:00 [place] Me dical HEALTHCARE MEDICARE Branc h [id number] 2006-Present[address] [address], [place] [address]Medicare Supplement Problems This patient has no known problems. Allergies, Adverse Reactions, Alerts Allergy Allergy Status Severity Reaction(s) Onset Inactive Treating Comm ents Source Name Type Date Date Clinician Penicill DA Active [place] 2020-0 [facility] 08[facility] [place] 00[facility] 00 are [place] Penicill DA Active SV HIVES 2020-0 [facility] ins 08-29 [place] 00:[facility]: [facility] 00 are [place] Penicill Propensi Active Hives 2015- Univer s ins ty to 6-16 ity of adverse 00:00: [place] reaction 00 Medical s to [place] drug Social History Social Habit Start Date Stop Date Quantity Comments Source Exposure to Not sure [facility] SARS-CoV-2 [facility] (event) Branch Tobacco use and 2015-02-05 2015-02-05 Never used Universit y of exposure 00:00:00 00:00:00 [facility] Alcohol intake 2015-02-05 2015-02-05 Current University 00:00:00 00:00:00 non-drinker of [facility] alcohol [place] (finding) Sex Ass[birth year] At [birth year] Universit y of 00:00:00 00:00:00 [facility] Smoking Status Start Date Stop Date Source Never smoker [facility] Medications Ordered Filled Start Stop Current Ordering Indication Dosage Frequency Signature Comments Components Source Medication Medication Date Date Medication? Clinician (SIG) Name Name No known No Univers medications [facility] No known No Univers medications [facility] No known No Univers medications [facility] Procedures Procedure Date / Time Performed Performing Clinician [facility] e ASSIGNMENT OF BENEFITS 2021-04-12 18:38:43 Doctor Unassigned, No [facility] Encounters Start End Encounter Admission Attending Care Care Encounter Source Date/Time Date/Time Type Type Clinicians Facility Department ID 2021-04-14 2021-04-14 Telephone GEOVANI Main [id number] Univers 00:00:00 00:00:00 Isabel CYR [id number] i ty of [facility] [id number] Connor as [id number] [facility] 019 Branch 2021-04-12 2021-04-12 Laboratory Only, Ang Db Test [facility] 1.2.8 40.114 [id number] Univers 13:38:59 13:48:59 Only Heron Carol [facility] [id number] ity [facility] [id number] Connor as Ish?Blea [id number] Md dical [address] Medical Office Building 2021-04-12 2021-04-12 Orders Doctor OLIVO [id number] 00:00:00 00:00:00 Only Unassigned, GER [id number] ity of [place] [facility] [id number] Connor as [id number] [facility] 009 Branch 2019-09-02 2019-09-02 Outpatient Luis Manuel, ARMINDANC CATH [id number] 020 [facility] 07:30:00 07:30:00 Nadim 0117 [facility] are [facility] Results Test Description Test [...] code = CA) 9.4 mg/dL 8.5-10.1 N [id number] 07:02:00 Test Item Value Reference Range Interpretation Comments MAGNESIUM (test code = MAG) 2.1 mg/dL 1.8-2.4 N THROMBOPLASTIN TIME [id number] 06:55:00 Test Item Value Reference Range Interpretation Comments THROMBOPLASTIN TIME PARTIAL 32.3 SECONDS 25.1-36.5 N (test code = PTT) PROTHROMBIN [id number] 06:55:00 Test Item Value Reference Range Interpretation [...] and/or recurren t systemicemboliz ation. CBC W/AUTO [id number] 06:40:00 Test Item Value Reference Range Interpretation [...]
[2021-08-06] MEDS ORDERED: NA CHLORIDE 0.9% 1,000 ML ONE (13:03)
--- NOTE | 2021-08-06 13:26 | RAD REPORT ---
EXAM DESCRIPTION: RAD - Chest Single View - 08/06/2021 1:12 pm CLINICAL HISTORY: COUGH COMPARISON: Chest Single View dated 06/27/2021; Chest Single View dated 06/24/2021; Chest Single View dated 06/13/2019; Chest Pa And Lat (2 Views) dated 09/10/2017 FINDINGS: Lines: Pacemaker. Lungs: Increased prominence of the pulmonary interstitium . Pleural: Blunting of the costophrenic angles bilaterally. Cardiac: Cardiomegaly. Bones: No acute fractures. Other: IMPRESSION: Increasing interstitial pulmonary edema with small effusions.
[2021-08-06 13:44] LABS: Absolute Lymphocytes (CBC) 1.6 K/uL (0.7-4.9); Basophils % 1.2 % (0-1.3); Hematocrit 35.3 % (36.0-45.0); MPV 9.8 fL (7.6-11.3); RBC Red Blood Cell Count 3.73 M/uL (3.86-4.86)
[2021-08-06 13:45] LABS: Protime INR 1.62
[2021-08-06 13:56] LABS: ALT/SGPT 36 U/L (12-78); AST/SGOT 32 U/L (15-37); Albumin 3.3 g/dL (3.4-5.0); Alkaline Phosphatase 74 U/L (45-117); BUN Blood Urea Nitrogen 26 mg/dL (7-18); Bicarbonate 24 mmol/L (21-32); Bilirubin Direct 0.5 mg/dL (0-0.2); Bilirubin Total 1.2 mg/dL (0.2-1.0); Glucose Level 102 mg/dL (74-106); Lipase 78 U/L (73-393); Magnesium 2.1 mg/dL (1.8-2.4); NT PRO-BNP 1899 pg/mL (<450); Potassium 3.9 mmol/L (3.5-5.1); Protein, Total 6.9 g/dL (6.4-8.2); Sodium Level 142 mmol/L (136-145); Troponin (Emerg Dept Use Only) < 0.02 ng/mL (0.0-0.045)
[2021-08-06 14:03] LABS: SARS-COV-2 RT PCR NEGATIVE (NEGATIVE)
[2021-08-06 14:12] LABS: Blood Morphology Comment NOT SEEN (NOT SEEN); Platelet Estimate ADEQ; White Blood Cell Scan OK (OK)
[2021-08-06 14:19] LABS: Urine Blood Negative (Negative); Urine Glucose Negative (Negative); Urine Protein 1+ (Negative); Urine Specific Gravity 1.025 (1.005-1.030)
--- NOTE | 2021-08-06 15:01 | RAD REPORT ---
EXAM DESCRIPTION: CTChest Abd Pelvis Wo Con - 08/06/2021 2:37 pm CLINICAL HISTORY: Cough;Pain COMPARISON: Thorax Wo Con dated 06/25/2021; Thorax Wo Con dated 04/28/2017 TECHNIQUE: CT of the chest, abdomen, and pelvis was performed. All CT scans are performed using dose optimization technique as appropriate and may include automated exposure control or mA/KV adjustment according to patient size. FINDINGS: Thorax: Chest Wall: Left upper chest wall pacemaker. Lungs: Atelectasis as a result effusions. No evidence of pulmonary edema. No suspicious pulmonary nod ules. Calcified right lower lobe nodules which are benign. Pleura: Small moderate right and small left pleural effusions. Cristel/Mediastinum: No lymphadenopathy. Aorta/Pulmonary Arteries: Unremarkable Heart: Moderate to severe cardiomegaly. Multi-vessel coronary artery disease. Aortic root calcificati ons. Abdomen/Pelvis: Liver: No acute abnormality or suspicious lesions. Dilated IVC which may reflect right heart failure. Biliary: Cholecystectomy. Stomach: No significant focal abnormality. Duodenum: No significant focal abnormality. Pancreas: No significant abnormality. Spleen: No significant abnormality. Adrenal: No suspicious lesions. Kidney/ureter: No hydronephrosis. No renal calculi. Retroperitoneum: No retroperitoneal adenopathy. Vascular: Aortic atherosclerosis. Bowel: No significant focal abnormality. Peritoneum: Small volume of ascites. Bladder: Grossly unremarkable. Reproductive: No adnexal masses. Bones: No acute fracture. Other: Mild body wall edema. IMPRESSION: Bilateral pleural effusions with body wall edema and ascites may be secondary to congest dorothy heart failure/anasarca. No other acute findings are identified involving the chest, abdomen, or p deborah.
--- NOTE | 2021-08-06 15:15 | EDPHYS ---
Physician Documentation [facility] Name: Sonia Camp Age: 86 yrs Sex: Female : 1935 Arrival Date: 08/06/2021 Time: 12:39 Bed 8 Private MD: ED Physician Gaurang Rader HPI: 08/06 15:06 This 86 yrs old Female presents to ER via Ambulatory with complaints of Sent georg[place] By Kavya, Breathing Difficulty. 15:06 The patient has shortness of breath at rest, with light activity. Onset: The georgiana symptoms/episode began/occurred 1 week(s) ago. Duration: The symptoms are continuous, and are steadily getting worse. The patient's shortness of breath is aggravated by exertion, supine position, is alleviated by rest, sitting up, application of supplemental oxygen. Severity of symptoms: At their worst the symptoms were moderate in the emergency department the symptoms have improved moderately. The patient has experienced similar episodes in the past, several times. Historical: - Allergies: 12:55 PENICILLINS (Hives, rash); ll1 - PMHx: 12:55 Atrial Fib; Gout; Hypertension; Pacemaker; ll1 - Immunization history:: Client reports receiving the 2nd dose of the Covid vaccine. - Social history:: Smoking status: Patient denies any tobacco usage or history of. ROS: 15:07 Constitutional: Negative for fever, chills, and weight loss, Eyes: Negative for injury, georgiana pain, redness, and discharge, ENT: Negative for injury, pain, and discharge, Neck: Negative for injury, pain, and swelling, Cardiovascular: Negative for chest pain, palpitations, and edema, Abdomen/GI: Negative for abdominal pain, nausea, vomiting, diarrhea, and constipation, Back: Negative for injury and pain, : Negative for injury, bleeding, discharge, and swelling, MS/Extremity: Negative for injury and deformity, Skin: Negative for injury, rash, and discoloration, Neuro: Negative for headache, weakness, numbness, tingling, and seizure, Psych: Negative for depression, anxiety, suicide ideation, homicidal ideation, and hallucinations, Allergy/Immunology: Negative for hives, rash, and allergies, Endocrine: Negative for neck swelling, polydipsia, polyuria, polyphagia, and marked weight changes, Hematologic/Lymphatic: Negative for swollen nodes, abnormal bleeding, and unusual bruising. 15:07 Respiratory: Positive for cough, shortness of breath, on exertion. Exam: 15:07 Constitutional: This is a well developed, well nourished patient who is awake, alert, georgiana and in no acute distress. Head/Face: Normocephalic, atraumatic. Eyes: Pupils equal round and reactive to light, extra-ocular motions intact. Lids and lashes normal. Conjunctiva and sclera are non-icteric and not injected. Cornea within normal limits. Periorbital areas with no swelling, redness, or edema. ENT: Nares patent. No nasal discharge, no septal abnormalities noted. Tympanic membranes are normal and external auditory canals are clear. Oropharynx with no redness, swelling, or masses, exudates, or evidence of obstruction, uvula midline. Mucous membranes moist. Neck: Trachea midline, no thyromegaly or masses palpated, and no cervical lymphadenopathy. Supple, full range of motion without nuchal rigidity, or vertebral point tenderness. No Meningismus. Chest/axilla: Normal chest wall appearance and motion. Nontender with no deformity. No lesions are appreciated. Cardiovascular: Regular rate and rhythm with a normal S1 and S2. No gallops, murmurs, or rubs. Normal PMI, no JVD. No pulse deficits. Abdomen/GI: Soft, non-tender, with normal bowel sounds. No distension or tympany. No guarding or rebound. No evidence of tenderness throughout. Back: No spinal tenderness. No costovertebral tenderness. Full range of motion. Female : Normal external genitalia. Skin: Warm, dry with normal turgor. Normal color with no rashes, no lesions, and no evidence of cellulitis. MS/ Extremity: Pulses equal, no cyanosis. Neurovascular intact. Full, normal range of motion. Neuro: Awake and alert, GCS 15, oriented to person, place, time, and situation. Cranial nerves II-XII grossly intact. Motor strength 5/5 in all extremities. Sensory grossly intact. Cerebellar exam normal. Normal gait. Psych: Awake, alert, with orientation to person, place and time. Behavior, mood, and affect are within normal limits. 15:07 Respiratory: the patient does not display signs of respiratory distress, Respirations: normal, no acute changes, Breath sounds: decreased breath sounds, that are mild, are located in both bases, rhonchi, that are mild, are scattered, stridor, is not appreciated, Respiratory rate: 30 15:07 Musculoskeletal/extremity: ROM: no acute changes, intact in all extremities, full active range of motion, full passive range of motion, Circulation is intact in all extremities. Sensation intact. Compartment Syndrome exam of affected extremity: is normal. DVT Exam: No signs of deep vein thrombosis. no pain, no swelling, no tenderness, negative Homans' sign noted on exam, no appreciated bluish discoloration, no erythema, no increased warmth. 15:23 ECG was reviewed by the Attending Physician. [facility] Vital Signs: 12:56 BP 160 / 101; Pulse 73; Resp 30; Temp 97.9; Pulse Ox 99% on R/A; Weight 76.66 kg; ll1 Height 5 ft. 6 in. (167.64 cm); Pain 0/10; 13:00 BP 188 / 82; Pulse 70; Resp 26; Pulse Ox 96% ; bp 15:00 BP 176 / 96; Pulse 70; Resp 23; Pulse Ox 96% ; bp 17:00 BP 148 / 60; Pulse 70; Resp 0; Pulse Ox 96% ; bp 12:56 Body Mass Index 27.28 (76.66 kg, 167.64 cm) ll1 MDM: 12:43 Patient medically screened. georgiana 15:09 Differential diagnosis: Anxiety Reaction asthma, Bronchitis CHF exacerbation, georgiana pneumonia. Antibiotic administration: Not indicated. Differential Diagnosis sepsis, flu. The patient's Wells Deep Vein Thrombosis Score was calculated as follows: Total Score: 0-2 Pts- Low Risk. The patient's pulmonary embolism risk score was calculated as follows: Total Score: 0-2 points. This patient was found to be at low risk for a pulmonary embolism by using the Well's assessment criteria. Immunization status: Pneumococcal vaccine: Influenza vaccine: Data reviewed: vital signs, nurses notes, lab test result(s), EKG, radiologic studies, CT scan, plain films. Data interpreted: engine monitor: rate is 73 beats/min, rhythm is regular, Pulse oximetry: on room air is 99 %. Test interpretation: by ED physician or midlevel provider: ECG, plain radiologic studies. Counseling: I had a detailed discussion with the patient and/or guardian regarding: the historical points, exam findings, and any diagnostic results supporting the discharge/admit diagnosis, lab results, radiology results, the need for further work-up and treatment in the hospital. 08/06 12:49 Order name: Basic Metabolic Panel; Complete Time: 14:19 [facility] 08/06 12:49 Order name: CBC with Diff; Complete Time: 14:19 [facility] 08/06 12:49 Order name: LFT's; Complete Time: 14:19 [facility] 08/06 12:49 Order name: Magnesium; Complete Time: 14:19 [facility] 08/06 12:49 Order name: NT PRO-BNP; Complete Time: 14:19 [facility] 08/06 12:49 Order name: PT-INR; Complete Time: 14:19 [facility] 08/06 12:49 Order name: Troponin (emerg Dept Use Only); Complete Time: 14:19 [facility] 08/06 12:49 Order name: XRAY Chest (1 view); Complete Time: 14:19 [facility] 08/06 12:49 Order name: Lipase; Complete Time: 14:19 [facility] 08/06 12:49 Order name: COVID-19/FLU A+B/RSV (Document "Date of Onset" if Symptomatic); Complete [facility] Time: 14:08/06 12:49 Order name: Urine Culture [facility] 08/06 14:12 Order name: CBC Smear Scan; Complete Time: 14:19 [facility] 08/06 14:18 Order name: Urine Dipstick-Ancillary; Complete Time: 14:19 [facility] 08/06 14:20 Order name: CT Chest Abdomen Pelvis W/O Contrast; Complete Time: 15:03 [facility] 08/06 12:49 Order name: EKG; Complete Time: 12:50 [facility] 08/06 12:49 Order name: Cardiac monitoring; Complete Time: 13:04 [facility] 08/06 12:49 Order name: EKG - Nurse/Tech; Complete Time: 13:05 [facility] 08/06 12:49 Order name: IV Saline Lock; Complete Time: 13:05 [facility] 08/06 12:49 Order name: Labs collected and sent; Complete Time: 13:05 [facility] 08/06 12:49 Order name: O2 Per Protocol; Complete Time: 13:48 [facility] 08/06 15:20 Order name: CONS Physician Consult [facility] 08/06 15:20 Order name: CONS Physician Consult [facility] 08/06 16:37 Order name: US Extremity Venous W Compression Kostas [facility] 08/06 17:49 Order name: US EDMN 08/06 12:49 Order name: O2 Sat Monitoring; Complete Time: 13:48 [place] 08/06 12:49 Order name: Urine Dipstick-Ancillary (obtain specimen); Complete Time: 14:24 [place] 08/06 13:18 Order name: Labs - recollect needed: all hemolyzed...do better; Complete Time: 13:48 iw EC:23 Rate is 70 beats/min. Rhythm is regular. QRS Nora is Normal. [place] interval is normal. QRS [place] interval is normal. QT interval is normal. No Q waves. T waves are Normal. No ST changes noted. Clinical impression: No evidence of ischemia. Interpreted by me. Reviewed by me. Administered Medications: 13:20 Drug: NS 0.9% 1000 ml Route: IV; Rate: 50 ml/hr; Site: right antecubital; bp 17:49 Follow up: IV Status: Infusion continued upon admission bp 14:55 Drug: Zofran (Ondansetron) 4 mg Route: IVP; Site: right antecubital; ll3 17:49 Follow up: Response: No adverse reaction bp 15:30 Drug: Lasix (furosemide) 40 mg Route: IVP; Site: right antecubital; bp 17:49 Follow up: Response: No adverse reaction bp 15:30 Drug: Xopenex (levalbuterol) 1.25 mg Route: Inhalation; bp 15:30 Drug: AtroVENT (ipratropium) Aerosol 0.5 mg Route: Inhalation; bp 17:00 Drug: morphine 2 mg Route: IVP; Site: right antecubital; ll3 17:49 Follow up: Response: Pain is decreased bp Disposition Summary: 08/06/21 15:14 Hospitalization Ordered Hospitalization Status: Inpatient Admission georgiana Provider: Pérez Hoff cha Location: Telemetry/MedSurg (Inpatient) [place] Condition: Fair georgiana Problem: new ge[place] Symptoms: have improved georgiana Bed/Room Type: Standard [facility] Room Assignment: 212(08/06/21 16:33) dw Diagnosis - Dyspnea georgiana - Obesity, unspecified [place] - Pleural effusion, not elsewhere classified georg[place] - Unspecified kidney failure - CHRONIC [place] - Systolic (congestive) heart failure georgiana - Chronic atrial fibrillation ge[place] Forms: - Medication Reconciliation Form georgiana - SBAR form [place] Signatures: Dispatcher [employer] EDAditi Henderson RN RN Gaurang Gutierrez MD MD cha Williams, Irene, RN RN iw Peltier, Brian, RN RN bp Lewis, Lynsay, RN RN ll1 Radha Govea RN RN ll3 Corrections: (The following items were deleted from the chart) 13:06 12:50 Chest Single View+RAD.RAD.BRZ ordered. EDMS EDMS 16:10 15:06 Adria ordered. [facility] bp 16:33 15:14 georgiana choi
--- NOTE | 2021-08-06 15:15 | ER ---
Nurse's Notes [facility] Name: Sonia Camp Age: 86 yrs Sex: Female : 1935 Arrival Date: 08/06/2021 Time: 12:39 Bed 8 Private MD: Diagnosis: Dyspnea;Obesity, unspecified;Pleural effusion, not elsewhere classified;Unspecified kidney failure-CHRONIC;Systolic (congestive) heart failure;Chronic atrial fibrillation Presentation: 08/06 12:56 Chief complaint: Patient states: SOB continues since last admission here, released ll1 07/22. Went to a alf rehab for 10 days, but just never got fully better. Admitted for CHF last month per patient. No fevers. Sent for eval. by Dr. Hoff. Coronavirus screen: Vaccine status: Patient reports receiving the 2nd dose of the covid vaccine. Client denies travel out of the [place] in the last 14 days. cough unrelated to allergies, difficulty breathing, fatigue, shortness of breath. Ebola Screen: Patient denies travel to an Ebola-affected area in the 21 days before illness onset. Initial Sepsis Screen: Does the patient meet any 2 criteria? RR > 20 per min. No. Patient's initial sepsis screen is negative. Does the patient have a suspected source of infection? Yes: Productive cough/pneumonia. Risk Assessment: Do you want to hurt yourself or someone else? Patient reports no desire to harm self or others. Onset of symptoms was July 17, 2021. 12:56 Method Of Arrival: Ambulatory ll1 12:56 Acuity: DEEPA 2 ll1 Triage Assessment: 13:00 General: Appears in no apparent distress. uncomfortable, Behavior is cooperative, bp appropriate for age, anxious. Pain: Denies pain. EENT: No deficits noted. Neuro: No deficits noted. Cardiovascular: Rhythm is ventricular pacer. Respiratory: Reports shortness of breath Onset: The symptoms/episode began/occurred at an unknown time. the patient has moderate shortness of breath. GI: No signs and/or symptoms were reported involving the gastrointestinal system. : No signs and/or symptoms were reported regarding the genitourinary system. Derm: No deficits noted. Musculoskeletal: No deficits noted. Historical: - Allergies: 12:55 PENICILLINS (Hives, rash); ll1 - PMHx: 12:55 Atrial Fib; Gout; Hypertension; Pacemaker; ll1 - Immunization history:: Client reports receiving the 2nd dose of the Covid vaccine. - Social history:: Smoking status: Patient denies any tobacco usage or history of. Screenin:00 Abuse screen: Denies threats or abuse. Denies injuries from another. Nutritional bp screening: No deficits noted. Tuberculosis screening: No symptoms or risk factors identified. Fall Risk None identified. Assessment: 13:00 Reassessment: No changes from previously documented assessment. Patient and/or family bp updated on plan of care and expected duration. Pain level reassessed. General: SEE TRIAGE NOTE. Cardiovascular: Rhythm is Respiratory: Airway is patent Respiratory effort is even, unlabored, Breath sounds with wheezes. 15:00 Reassessment: No changes from previously documented assessment. Patient and/or family bp updated on plan of care and expected duration. Pain level reassessed. ADMIT INITIATED. 17:00 Reassessment: No changes from previously documented assessment. Patient and/or family bp updated on plan of care and expected duration. Pain level reassessed. 17:47 Reassessment: ADMIT COMPLETE, REPORT TO PRISCILA STEPHENS. bp Vital Signs: 12:56 BP 160 / 101; Pulse 73; Resp 30; Temp 97.9; Pulse Ox 99% on R/A; Weight 76.66 kg; ll1 Height 5 ft. 6 in. (167.64 cm); Pain 0/10; 13:00 BP 188 / 82; Pulse 70; Resp 26; Pulse Ox 96% ; bp 15:00 BP 176 / 96; Pulse 70; Resp 23; Pulse Ox 96% ; bp 17:00 BP 148 / 60; Pulse 70; Resp 0; Pulse Ox 96% ; bp 12:56 Body Mass Index 27.28 (76.66 kg, 167.64 cm) ll1 ED Course: 12:39 Patient arrived in ED. rg4 12:43 Gaurang Rader MD is Attending Physician. georgiana 12:44 Rd Kelly, RN is Primary Nurse. bp 12:55 Arm band placed on Patient placed in an exam room, on a stretcher. ll1 12:58 Triage completed. ll1 13:00 Patient has correct armband on for positive identification. Bed in low position. Call bp light in reach. Side rails up X2. Adult w/ patient. 13:00 COVID swab sent to lab. Lab(s) recollected, by ED staff, sent to lab. Inserted saline kj1 lock: 20 gauge in right antecubital area, using aseptic technique. Blood collected. 13:12 XRAY Chest (1 view) In Process Unspecified. EDMS 14:28 CT Chest Abdomen Pelvis W/O Contrast Sent. bp 14:37 CT Chest Abdomen Pelvis W/O Contrast In Process Unspecified. EDMS 15:12 Pérez Hoff MD is Hospitalizing Provider. georgiana 17:45 No provider procedures requiring assistance completed. Patient admitted, IV remains in bp place. Administered Medications: 13:20 Drug: NS 0.9% 1000 ml Route: IV; Rate: 50 ml/hr; Site: right antecubital; bp 17:49 Follow up: IV Status: Infusion continued upon admission bp 14:55 Drug: Zofran (Ondansetron) 4 mg Route: IVP; Site: right antecubital; ll3 17:49 Follow up: Response: No adverse reaction bp 15:30 Drug: Lasix (furosemide) 40 mg Route: IVP; Site: right antecubital; bp 17:49 Follow up: Response: No adverse reaction bp 15:30 Drug: Xopenex (levalbuterol) 1.25 mg Route: Inhalation; bp 15:30 Drug: AtroVENT (ipratropium) Aerosol 0.5 mg Route: Inhalation; bp 17:00 Drug: morphine 2 mg Route: IVP; Site: right antecubital; ll3 17:49 Follow up: Response: Pain is decreased bp Outcome: 15:14 Decision to Hospitalize by Provider. georgiana 17:45 Admitted to Med/surg accompanied by tech, via wheelchair, room 212, with chart, Report bp called to PRISCILA STEPHENS 17:45 Condition: stable 17:45 Instructed on the need for admit. 18:21 Patient left the ED. bp Signatures: Dispatcher [employer] EDGaurang Dunne MD MD cha Garcia, Rubi rg4 Rd Kelly RN RN Shauna Nettles kj1 Angel Luis Lim, RN RN ll1 Radha Govea RN RN ll3
[2021-08-06] MEDS ORDERED: FUROSEMIDE 20 MG/ 2ML VIAL ONE (15:52)
[2021-08-06] MEDS ORDERED: IPRATROPIUM BROM 0.5MG/2.5ML ONE (15:52)
[2021-08-06] MEDS ORDERED: LEVALBUTEROL 1.25 MG/3 ML NEB ONE (15:52)
[2021-08-06] MEDS ORDERED: ONDANSETRON 4 MG/2 ML VIAL ONE (17:24)
[2021-08-06] MEDS ORDERED: MORPHINE 2 MG/ML SYR ONE (17:24)
--- NOTE | 2021-08-06 17:48 | RAD REPORT ---
EXAM DESCRIPTION: US - Extrem Venous W Compress Kostas - 08/06/2021 5:31 pm CLINICAL HISTORY: Leg pain COMPARISON: None. TECHNIQUE: Real-time sonographic evaluation of the bilateral lower extremity deep venous systems was performed. FINDINGS: Normal compressibility, flow augmentation, phasic flow and spontaneous flow is identified in both the left and right lower extremity deep venous systems. No intraluminal filling defects seen. IMPRESSION: No DVT in either lower extremity.
[2021-08-06 18:44] VITALS: BMI 27.1
[2021-08-06] MEDS ORDERED: MORPHINE 2 MG/ML SYR IV PRN (19:05)
[2021-08-06] MEDS ORDERED: ONDANSETRON 4 MG/2 ML VIAL IV PRN (19:05)
[2021-08-06] MEDS ORDERED: IPRATROPIUM BROM 0.5MG/2.5ML NEB PRN (19:05)
[2021-08-06] MEDS ORDERED: ACETAMINOPHEN 325 MG TABLET PO PRN (19:05)
[2021-08-06] MEDS ORDERED: ALBUTEROL 2.5 MG/3 ML NEB SOL NEB PRN (19:05)
[2021-08-06] MEDS ORDERED: PNEUMOCOCCAL VACCINE 0.5 ML IMVAC ONE (20:00)
[2021-08-06] MEDS: FUROSEMIDE 40 MG/4 ML VIAL IV SCH (20:23)
[2021-08-06] MEDS: FAMOTIDINE 20 MG/2 ML VIAL IV SCH (21:00)
--- NOTE | 2021-08-07 00:39 | CON ---
Date of Consultation: 08/06/2021 Chief Complaint: Chronic kidney injury, cardiorenal syndrome, history of chronic atrial fibrillation . History Of Present Illness: The patient presented to the hospital because of shortness of breath, ge neralized weakness, and epigastric and right upper quadrant abdominal pain radiating from the right f lank. The patient was complaining of generalized weakness and progressively worse edema in the lower extremity. Recently, she was hospitalized for congestive heart failure exacerbation and acute kidne y injury. Back in June, she admitted for congestive heart failure exacerbation, acute kidney inj ury, and hypercalcemia. The patient is complaining of fatigue and she was found to have pleural effu miguel. She is admitted to the hospital for congestive heart failure and diuretic therapy. She was co mplaining of productive cough and workup is pending to rule out pneumonia, sepsis, and acute coronary syndrome. The patient has multiple medical problems including chronic atrial fibrillation. She was seen by Cardiology during previous admission, history of hypertension, pacemaker placement. The pat ient received second dose of COVID vaccine. In the emergency room, blood pressure were elevated. Th e patient has hypertensive urgency and she was treated for elevated blood pressure. Systolic blood p ressure was 188, diastolic 82. Subsequently with medication, blood pressure improved to 148/60. The patient was medicated with Lasix, received inhalation with Xopenex and Atrovent and received morphin e for pain in the upper back and right upper quadrant pain. CT scan of the abdomen and pelvis was do ne in the emergency room without contrast as well and CT scan of the chest was obtained. Kidney, ure ter did not show hydronephrosis. No renal calculi. There was no retroperitoneal adenopathy. Aortic atherosclerosis was present. There was small volume ascites. No adnexal mass. Status post cholecy stectomy. Dilated IVC, may reflect right heart failure. There was atelectasis and an effusion. No evidence of pulmonary. Multivessel coronary artery disease was show as well as aortic root calcifica tion. Review of Systems: General: The patient denies fever, chills. Eyes: Denies vision changes. Ears, Nose, Mouth, and Throat: Denies sore throat or earache. Respiratory: Has shortness of breath, cough, without wheezing. Heart: The patient denies chest pain, palpitation, or syncope. GI: The patient is complaining of epigastric pain, radiating to right flank. Extremities: Denies oozing. She has lower legs edema. All other systems reviewed and all are negative. Past Medical History: Atrial fibrillation, status post automatic implantable cardioverter-defibrilla tor, hyperlipidemia, hypothyroid, hypertension, low back pain. Past Surgical History: Cholecystectomy, appendectomy, foot surgery, tubal ligation, tonsillectomy. Family History: Hypertension. Social History: Denies tobacco, alcohol, or illicit drugs. Physical Examination: General: Not in acute distress. Eyes: Anicteric sclerae. EOMI. Ears, Nose, Mouth, and Throat: Oral mucosa moist. No pallor. Neck: Supple. No bruits. Lungs: Diminished breath sound at bases. Few crackles. Heart: S1, S2. No pericardial friction or rub. Extremities: Edema present in both legs. No oozing. No drainage. Neurological: Moving extremities. Cranial nerves are intact. No tremor. Laboratory Work: Hemoglobin 11.4, WBC 5.7, platelet count 266. Chemistries; sodium 142, potassium 3 .9, chloride 103, bicarbonate 24, BUN 26, creatinine 1.40, glucose 102. Total bilirubin 1.2, albumin 3.3, total protein 6.9. Troponin 0.02. Impression And Plan: 1.Congestive heart failure exacerbation and fluid overload edema. Continue IV diuretics. 2.An extremity venous Doppler test to rule out deep vein thrombosis. No DVT in either lower extremi ties. 3.Hypercalcemia. Avoid HCTZ which may cause hypercalcemia in this particular patient. Previously, the patient was treated for hypercalcemia and it is now within normal limits. 4.Hypoalbuminemia. The patient will need workup for proteinuria. Previously, she had workup done w ith protein electrophoresis. The patient may continue workup as needed for the proteinuria outpatien t. 5.Hypertension. Continue blood pressure medication. Monitor blood pressure. We will adjust treatm ent as needed accordingly. JOSE/TRISTEN Voice ID: [id number] Report ID: [id number]
[2021-08-07 04:16] LABS: Absolute Lymphocytes (CBC) 1.8 K/uL (0.7-4.9); Hematocrit 33.8 % (36.0-45.0); MPV 10.4 fL (7.6-11.3); RBC Red Blood Cell Count 3.57 M/uL (3.86-4.86)
[2021-08-07 04:26] LABS: Potassium 3.7 mmol/L (3.5-5.1)
--- NOTE | 2021-08-07 08:35 | RAD REPORT ---
EXAM DESCRIPTION: RAD - Chest Single View - 08/07/2021 6:03 am CLINICAL HISTORY: Chest Pain Chest pain. COMPARISON: Chest Single View dated 08/06/2021; Chest Single View dated 06/27/2021; Chest Single Vie w dated 06/24/2021; Chest Single View dated 06/13/2019 FINDINGS: Portable technique limits examination quality. [id number] interstitial pulmonary edema is again seen. Small bilateral pleural effusions are un changed. The heart is moderately enlarged with dual lead pacer device present. No displaced fractures . IMPRESSION: Mild to moderate CHF pattern without significant change.
[2021-08-07] MEDS: FUROSEMIDE 40 MG/4 ML VIAL IV SCH ×2 (09:00→13:07)
[2021-08-07] MEDS: FAMOTIDINE 20 MG/2 ML VIAL IV SCH (09:18)
[2021-08-07] MEDS: RIVAROXABAN 10 MG TABLET PO SCH (09:18)
--- NOTE | 2021-08-07 09:39 | HP ---
Date of Admission: 08/06/2021 Enterance Complaint: Shortness of breath. History Of Present Illness: The patient presented to the office complaining of increasing dyspnea ov er the past week so that she has to sit up. The patient was seen couple of weeks earlier and has bee n stable; however, she stated the past few days she has been increasingly fatiguing and therefore cam e into the office. Past History: The patient has a long history of cardiac problems. A couple of weeks prior to this, she was admitted with marked hypercalcemia which was felt to be secondary to excessive diuresis. She was seen by Nephrology and Pulmonology and with some modification of her diuretic; however, the edwin ent states since that time at the beginning she noticed no difference over the past week or 2. She h as noticed increased swelling in her extremities and her abdomen, which coincides with her dyspnea. Past history as mentioned, the patient also had a pacemaker a number of years ago. She has been unde r good control. Repeat blood work after above hypercalcemia was normal. She was maintained on the l ower doses of diuretic and obviously this was a contributing factor for her present status. Social History: Nonsmoker, nondrinker. Family History: Noncontributory. Physical Examination: General: The patient is a moderately obese elderly female, dyspnea with obvious edema of her extremi ties. Head and Neck: Normocephalic. Pupils are equal, reactive to accommodation. Fundi negative. Trache a midline. Thyroid not palpable. ENT: Negative. Chest: High-pitched rhonchi and rales bilaterally. Adequate air entry and movement without use of a ccessory muscles. Cardiovascular: PMI midclavicular line. Heart sounds normal. Abdomen: Some discomfort in the upper abdomen on deep palpation. Possible ascites. Extremities: +2 edema, pitting bilaterally of all extremities and some fluid retention in the upper extremities well. Good tone and movement bilaterally. Reflexes physiologic. Rectal/Pelvic: Deferred. Impression: Acute exacerbation of congestive heart failure. Plan: The patient will be admitted, diuresed. Depending on the responsiveness, we will modify her m edication and consultation will also be obtained with Nephrology. HR/MODL Voice ID: [id number]
[2021-08-07 09:53] LABS: Thyroid Stimulating Hormone 5.03 uIU/mL (0.360-3.740)
[2021-08-07] MEDS ORDERED: FUROSEMIDE 40 MG/4 ML VIAL IV SCH (10:00)
[2021-08-07] MEDS ORDERED: POTASSIUM CL SA 10 MEQ TAB PO ONE (11:00)
--- NOTE | 2021-08-07 12:05 | P.PN ---
Subjective Date of Service: 08/07/21 Subjective Pt admitted with SOB, Cr up to 1.4 today Cr down to 1.2 on lasix 80mg IV tid Physical Examination: General: AAOX3, , obeses neck: supple, no elevated JVD Heart: RRR, normal S1,2 no murmur or rub chest CTAB, no rales or whezes Abdomen: soft , NT ext : edema HTN CKD cr now down to 1.2 due to cardiorenal syndrome cont lasix avoid NSAID and contrast Congestive heart failure exacerbation and fluid overload edema. Continue IV diuretics. Hypercalcemia. Avoid HCTZ which may cause hypercalcemia in this particular patient. Previously, the patient was treated for hypercalcemia and it is now within normal limits. Hypertension. Continue blood pressure medication. Monitor blood pressure. We will adjust treatment as needed accordingly. Physical Examination - Vital Signs Temperature: 97.6 F Blood Pressure: 188/87 Pulse: 70 Respirations: 16 Pulse Ox (%): 94 - Studies Laboratory Data (last 24 hrs) 08/06/21 13:30: PT 18.7 H, INR 1.62 08/06/21 13:30: WBC 5.70, Hgb 11.4 L, Hct 35.3 L, Plt Count 266 08/06/21 13:30: Sodium 142, Potassium 3.9, BUN 26 H, Creatinine 1.40 H, Glucose 102, Magnesium 2.1, Total Bilirubin 1.2 H, AST 32, ALT 36, Alkaline Phosphatase 74, Lipase 78
[2021-08-07] MEDS: AMLODIPINE 10 MG TAB PO SCH (13:07)
[2021-08-07] MEDS: METOPROLOL TAR 25 MG TAB PO SCH (16:31)
[2021-08-07] MEDS ORDERED: TEMAZEPAM 15 MG CAP PO PRN (22:15)
[2021-08-08] MEDS: FUROSEMIDE 40 MG/4 ML VIAL IV SCH (00:52)
[2021-08-08 04:09] LABS: Potassium 3.2 mmol/L (3.5-5.1)
[2021-08-08] MEDS: METOPROLOL TAR 25 MG TAB PO SCH ×2 (05:46→18:58)
[2021-08-08] MEDS: RIVAROXABAN 10 MG TABLET PO SCH (08:29)
[2021-08-08] MEDS: AMLODIPINE 10 MG TAB PO SCH (08:29)
[2021-08-08] MEDS: FAMOTIDINE 20 MG/2 ML VIAL IV SCH (08:30)
[2021-08-08] MEDS ORDERED: POTASSIUM CL SA 10 MEQ TAB PO ONE (09:00)
[2021-08-08] MEDS ORDERED: lisinopriL 20 MG TAB PO SCH (09:00)
--- NOTE | 2021-08-08 11:03 | PN ---
Date of Progress Note: 08/08/2021 The patient feels much better today. Awaiting potassium results. It is reasonable she could be disc harged this afternoon. Change in medication includes increasing her Lasix from 20 to 40 b.i.d. and n o other diuretic. The patient's significant problem is her tricuspid valve, which may require repair . She is to continue on her other medication and to follow up next week with me at which time her bl ood work will be repeated. HR/MODL Voice ID: [id number] Report ID: [id number]
--- NOTE | 2021-08-08 11:27 | ECHO ---
HEIGHT: 5 ft 6 in WEIGHT: 168 lb 3.2 oz DATE OF STUDY: 08/07/[address]: Pérez Hoff MD 2-DIMENSIONAL: YES M.MODE: YES DOPPLER: YES COLOR FLOW: YES TDS: PORTABLE: DEFINITY: BUBBLE STUDY: DIAGNOSIS: CONGESTIVE HEART FAILURE CARDIAC HISTORY: CATHERIZATION: NO SURGERY: NO PROSTHETIC VALVE: NO PACEMAKER: YES MEASUREMENTS (cm) DIASTOLIC (NORMALS) SYSTOLIC (NORMALS) IVSd 1.0 (0.6-1.2) LA Diam 3.8 (1.9-4.0) LVEF 55-60% LVIDd 3.7 (3.5-5.7) LVIDs 2.3 (2.0-3.5) %FS 38% LVPWd 1.0 (0.6-1.2) Ao Diam 2.4 (2.0-3.7) 2 DIMENSIONAL ASSESSMENT: RIGHT ATRIUM: ENLARGED LEFT ATRIUM: NORMAL RIGHT VENTRICLE: NORMAL LEFT VENTRICLE: NORMAL TRICUSPID VALVE: SEVERE TRICUSPID REGURGITATION MITRAL VALVE: MILD MITRAL REGURGITATION PULMONIC VALVE: NORMAL AORTIC VALVE: MILD AORTIC INSUFFIENCY PERICARDIAL EFFUSION: NONE AORTIC ROOT: NORMAL LEFT VENTRICULAR WALL MOTION: NORMAL DOPPLER/COLOR FLOW: SEE BELOW COMMENTS: NORMAL LEFT VENTRICULAR EJECTION FRACTION 55-60%. SEVERE TRICUSPID REGURGITATION. MILD MITRAL REGURGITATION, MILD AORTIC INSUFFIENCY. RIGHT ATRIAL ENLARGEMENT. 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 TECHNOLOGIST: MARLENA FUNEZ
[2021-08-08 12:39] VITALS: O2SAT 93
--- NOTE | 2021-08-08 12:48 | CON ---
Date of Consultation: 08/08/2021 Reason For Consultation: Heart failure. History Of Present Illness: This is an 86-year-old female with known history of right-sided heart fa ilure, chronic kidney disease, presented with worsening shortness of breath, orthopnea, lower extremi ty edema, and found to be in acute heart failure. She apparently had an episode with severe hypercal cemia recently and her diuretics were adjusted. She was taken significant amount of Lasix plus metol azone that was stopped and then the patient started to get fluid overload and presented to the emerge ncy room. Past Medical History: As outlined above in HPI. Medications: Refer to reconciliation sheet for detailed list. Allergies: PENICILLIN. Family History: No premature coronary artery disease or cancer. Social History: Does not smoke or drink. Does not use any drugs. Review of Systems: All systems reviewed and they were negative except what mentioned in HPI. Physical Examination: Vital Signs: Reviewed. Head and Neck: Pupils are equal, reactive to light. Intact eye movements. No JVD. No cervical lym phadenopathy. Neck: Supple. Thyroid is not enlarged. Lungs: Clear to auscultation bilaterally. No rhonchi, rales, or crackles. No accessory muscle use. Heart: Regular rate and rhythm. No extra sounds. Abdomen: Soft, nontender. Bowel sounds positive. No organomegaly. No masses or hernia. No rigidi ty or rebound. Extremities: No clubbing, cyanosis, or edema. Skin: No rashes. Neurologic: Alert, awake, oriented x3. No acute focal deficits appreciated. Lymph Nodes: No cervical or axillary lymphadenopathy. Investigations: Labs are reviewed. On echo, she has severe tricuspid valve regurgitation with demetrice l RV function and normal LV function. Assessment And Recommendations: Right-sided heart failure, likely due to severe tricuspid valve regu rgitation which is etiology behind her symptoms. This patient will need further evaluation with [facility]. I agree with diuresis. I will switch her to oral Lasix 40 mg twice a day for now and the patient c an be released and follow up with me in the office in 2 weeks to arrange for outpatient [facility] and plan for possible tricuspid valve repair versus tricuspid valve clip. Discussed the case with the patient and with Dr. Hoff. Thank you for the consult. /TRISTEN Voice ID: [id number] Report ID: [id number]
--- NOTE | 2021-08-08 15:28 | P.PN ---
Subjective Date of Service: 08/08/21 Subjective Pt admitted with SOB, Cr up to 1.4 today Cr down to 1.2 K replaced cleared for discharg from nephrology point of view to be discharged on lasix Physical Examination: General: AAOX3, , obeses neck: supple, no elevated JVD Heart: RRR, normal S1,2 no murmur or rub chest CTAB, no rales or whezes Abdomen: soft , NT ext : edema A/P HTN CKD cr now down to 1.2 due to cardiorenal syndrome cont lasix avoid NSAID and contrast Congestive heart failure exacerbation and fluid overload edema. Continue IV diuretics. Hypercalcemia. Avoid HCTZ which may cause hypercalcemia in this particular patient. Previously, the patient was treated for hypercalcemia and it is now within normal limits. Hypertension. Continue blood pressure medication. Monitor blood pressure. We will adjust treatment as needed accordingly. Hypokalemia due to diuresis placed pt will be discharged on lasix po Physical Examination - Vital Signs Temperature: 98.1 F Blood Pressure: 144/64 Pulse: 70 Respirations: 14 Pulse Ox (%): 95 - Studies Microbiology Data (last 24 hrs): 08/06/21 14:10 Clean Catch Urine Deford Count - Final <10,000 CFU/ML. 08/06/21 14:10 Clean Catch Urine - Final MIXED GEMMA.
[2021-08-08 16:06] VITALS: BP 133/62; TEMP 98
[2021-08-08] MEDS ORDERED: FUROSEMIDE 40 MG TABLET PO ONE (19:00)
== END 2021-08-08 19:00 | disposition home or self-care (01) | DRG 291 ==
LOC: ER 12:37 → ERHOLD 15:17 → 2ND 17:44
PROVIDERS: ADMIT Family Medicine; ATTEND Family Medicine
DX: I13.0 Hypertensive heart and chronic kidney disease with heart failure and stage 1 through stage 4 chronic kidney disease, or unspecified chronic kidney disease (principal); I50.23 Acute on chronic systolic (congestive) heart failure; I48.20 Chronic atrial fibrillation, unspecified; N18.9 Chronic kidney disease, unspecified; M10.9 Gout, unspecified; E78.5 Hyperlipidemia, unspecified; E87.6 Hypokalemia; E88.09 Other disorders of plasma-protein metabolism, not elsewhere classified; E83.52 Hypercalcemia; E66.9 Obesity, unspecified; Z68.27 Body mass index [BMI] 27.0-27.9, adult; Z98.51 Tubal ligation status; Z90.49 Acquired absence of other specified parts of digestive tract; Z88.0 Allergy status to penicillin; Z20.822 Contact with and (suspected) exposure to COVID-19
CPT/HCPCS: 0241U; 36415; 71045; 71250; 74176; 80048; 80076; 81003; 83690; 83735; 83880; 84132; 84439; 84443; 84484; 85025; 85610; 87086; 87088; 93005; 93306; 93970; 96361; 96374; 96375; 99285; J1940; J2270; J2405; J7030